=== PATIENT | female | born 1960 | race Hispanic/Latino ===

== ENCOUNTER 2020-10-28 16:26 | Inpatient (IN) | payer MEDICARE ==
[2020-10-28] MEDS ORDERED: methylPREDNISolone Sod Succinate 125 MG/2 ML INJ IV ONE (16:27)
[2020-10-28] MEDS ORDERED: FUROSEMIDE 40 MG/4 ML INJ IV ONE (16:27)
--- NOTE | 2020-10-28 16:33 | Emergency Department Report ---
ED Shortness of Breath HPI - General Chief Complaint: Dyspnea/Respdistress Stated Complaint: RESP DISTRESS Time Seen by Provider: 10/28/20 16:27 Source: patient, EMS - History of Present Illness Initial Comments: Patient is 60 years old female with history of congestive heart failure, COPD and hypertension. Patient brought to the emergency room via EMS from home for evaluation of sudden onset of difficulty breathing and shortness of breath. Patient denied any chest pain. Patient also denied any fever or chills. Patient is not vaccinated for COVID-19. EMS is reported that patient oxygen saturation initially was 72 improved to 82% on a nonrebreather. Upon arrival to the ER patient is tachypneic with an oxygen saturation of 72% on nonrebreather. Patient is alert, oriented x3 in acute distress. Patient immediately started on BiPAP. Chest exam showed diffuse rales. Patient given Lasix 60 mg IV. MD Complaint: shortness of breath - Related Data Allergies Allergy/AdvReac Type Severity Reaction Status Date / Time acetaminophen Allergy Swelling Verified 11/20/12 00:47 [From Tylenol-Codeine #3] codeine phosphate Allergy Swelling Verified 11/20/12 00:47 [From Tylenol-Codeine #3] Penicillins Allergy Unknown Verified 11/20/12 00:47 ED Review of Systems ROS: Stated complaint: RESP DISTRESS Other details as noted in HPI Comment: All other systems reviewed and negative Constitutional: denies: chills, fever Respiratory: cough, orthopnea, shortness of breath, SOB with exertion, SOB at rest. denies: wheezing Cardiovascular: denies: chest pain, palpitations Gastrointestinal: denies: abdominal pain, nausea, vomiting Musculoskeletal: denies: back pain Neurological: denies: headache, weakness, numbness, paresthesias, confusion, abnormal gait ED Past Medical Hx - Past Medical History Hx Hypertension: Yes Hx Arthritis: Yes Additional medical history: Anxiety, Panic Attack - Surgical History Additional Surgical History: Bilateral shoulder, leg and knee surgery - Social History Smoking Status: Current Every Day Smoker Substance Use Type: None ED Physical Exam - General General appearance: alert, in distress - Head Head exam: Present: atraumatic, normocephalic, normal inspection - Eye Eye exam: Present: normal appearance, PERRL - ENT ENT exam: Present: normal exam, normal orophraynx, mucous membranes moist - Neck Neck exam: Present: normal inspection, full ROM. Absent: tenderness, meningismus - Respiratory Respiratory exam: Present: respiratory distress, rales, decreased breath sounds. Absent: wheezes, rhonchi, chest wall tenderness, accessory muscle use, prolonged expiratory - Cardiovascular Cardiovascular Exam: Present: tachycardia, normal heart sounds. Absent: systolic murmur, diastolic murmur - GI/Abdominal GI/Abdominal exam: Present: soft, normal bowel sounds. Absent: distended, tenderness, guarding, rebound, rigid, organomegaly, mass, bruit, pulsatile mass, hernia - Extremities Exam Extremities exam: Present: normal inspection, full ROM, normal capillary refill. Absent: tenderness, pedal edema, joint swelling, calf tenderness - Back Exam Back exam: Present: normal inspection, full ROM. Absent: CVA tenderness (R), CVA tenderness (L) - Neurological Exam Neurological exam: Present: alert, oriented X3, CN II-XII intact, normal gait, reflexes normal. Absent: motor sensory deficit - Psychiatric Psychiatric exam: Present: anxious - Skin Skin exam: Present: warm, intact, normal color ED Course Vital Signs 10/28/20 10/28/20 16:32 16:41 Temperature 98.9 F Pulse Rate 131 H 116 H Respiratory 40 H 30 H Rate Blood Pressure 134/89 132/88 O2 Sat by Pulse 94 92 Oximetry ED Medical Decision Making - Lab Data Result diagrams: 10/28/20 17:30 10/28/20 16:35 - EKG Data -: EKG Interpreted by Wy EKG shows normal: sinus rhythm Rate: tachycardia - EKG Data Interpretation: no acute changes - Radiology Data Radiology results: report reviewed - Medical Decision Making Patient is 60 years old female with history of congestive heart failure, COPD and hypertension. Patient brought to the emergency room via EMS from home for evaluation of sudden onset of difficulty breathing and shortness of breath. Patient denied any chest pain. Patient also denied any fever or chills. Patient is not vaccinated for COVID-19. EMS is reported that patient oxygen saturation initially was 72 improved to 82% on a nonrebreather. Upon arrival to the ER patient is tachypneic with an oxygen saturation of 72% on nonrebreather. Patient is alert, oriented x3 in acute distress. Patient immediately started on BiPAP. Chest exam showed diffuse rales. Patient given Lasix 60 mg IV. Patient symptoms improved significantly with BiPAP. O2 sat now is 96%. Patient lactic acid is 7.2. Patient started on gentle hydration normal saline 250 mL/h. Chest x-ray showed bilateral pneumonia concerning for COVID-19. Patient already received Solu-Medrol. I added Levaquin since patient is allergic to penicillin. I discussed the patient with Dr. Negro, he agreed to admit the patient to medical service for further management. Critical Care Time: Yes Critical care time in (mins) excluding proc time.: 30 Critical care attestation.: If time is entered above; I have spent that time in minutes in the direct care of this critically ill patient, excluding procedure time. ED Disposition Clinical Impression: Acute respiratory failure with hypoxia, Bilateral pneumonia, Suspected COVID-19 virus infection Disposition: ADMITTED INPATIENT Is pt being admited?: Yes Condition: Stable Instructions: Bacterial Pneumonia (ED)
[2020-10-28] MEDS ORDERED: MORPHINE 4 MG/1 ML INJ IV ONE (17:05)
[2020-10-28] MEDS ORDERED: ONDANSETRON 4 MG/2 ML INJ IV ONE (17:05)
--- NOTE | 2020-10-28 17:06 | XRay Report ---
CHEST 1 VIEW INDICATION: Dyspnea. COMPARISON: None FINDINGS: SUPPORT DEVICES: None. HEART: Cardiomegaly with CABG change. LUNGS/PLEURA: Moderate patchy multifocal airspace disease with a right greater than left basilar pred ominance. ADDITIONAL FINDINGS: None. IMPRESSION: 1. Lung findings as above Signer Name: Adam Bravo MD Signed: 10/28/2020 5:01 PM Workstation Name: [id number]
[2020-10-28] MEDS ORDERED: SODIUM CHLORIDE 0.9% 1000 ML 1,000 ML IV ONE (17:22)
[2020-10-28 17:24] LABS: BUN/Creatinine Ratio 14; Blood Urea Nitrogen 13 mg/dL (7-17); Calcium 9.5 mg/dL (8.4-10.2); Hemolysis Index 49
[2020-10-28 17:27] LABS: INR 0.99 (0.87-1.13)
[2020-10-28 17:28] LABS: Albumin 4.2 g/dL (3.9-5); Bilirubin,Direct 0.2 mg/dL (0-0.2)
[2020-10-28 17:40] LABS: Chol/HDL Ratio 4.35 %; HDL Cholesterol 39 mg/dL (40-59); LDL Cholesterol,Direct 100 mg/dL (50-130)
[2020-10-28 17:52] LABS: Partial Thromboplastin Time < 24.2 Sec. (24.2-36.6)
[2020-10-28 17:57] LABS: Hemoglobin 9.9 gm/dl (10.1-14.3); Mean Corpuscular HGB Conc 31 % (30-34); Mean Corpuscular Volume 89 fl (79-97); Platelet Count 353 K/mm3 (140-440); Red Blood Count 3.59 M/mm3 (3.65-5.03)
[2020-10-28 17:58] LABS: Red Cell Distribution Width 20.5 % (13.2-15.2)
--- NOTE | 2020-10-28 18:10 | History and Physical Report ---
History of Present Illness Chief complaint: Difficulty breathing History of present illness: 60 YO Female with Obesity Hypoventilation Syndrome, CHF, HTN, COPD, OA, ANGELICA, Nicotine Dependence presents to ED for evaluation. Patient reports "it is difficult to breathe". Patient states that she experienced generalized we akness, malaise, body aches, diminished sense of taste, diminished sense of smell, shortness of breath over the past 2 days with acute worsening of shortness of breath today. EMS was notified and upon arrival the patient was found to be in distress and subsequent transported to [facility] for further care and evaluation of the aforementioned symptoms. The patient was seen and evaluated in the emergency department. All lab and imaging studies reviewed. The patient was found to have a pulse oximetry of 72% on room air which is consistent with acute hypoxemic respiratory failure. The patient was treated with supplemental oxygen with mild improvement in symptoms. Chest x-ray revealed bilateral pn eumonia. The patient was found to have sepsis suspected secondary to pneumonia, as well as metabolic acidosis. The patient was admitted to medical floor and initiated on sepsis protocol as well as pneumonia protocol and coronavirus protocol due to increased risk of worsening symptoms. Patient denies fever, chills, chest pain, palpitation, skin rash, recent ill contacts. Patient has not received COVID-19 vaccination. Past History Past Medical History: arthritis, COPD, heart failure, hypertension Past Surgical History: total knee replacement, Other (Shoulder surgery) Social history: , smoking Family history: diabetes, hypertension Medications and Allergies Allergies Allergy/AdvReac Type Severity Reaction Status Date / Time acetaminophen Allergy Swelling Verified 11/20/12 00:47 [From Tylenol-Codeine #3] codeine phosphate Allergy Swelling Verified 11/20/12 00:47 [From Tylenol-Codeine #3] Penicillins Allergy Unknown Verified 11/20/12 00:47 Active Meds: Active Medications Levofloxacin/Dextrose (Levaquin 500mg/100ml) 500 mg in 100 mls @ 100 mls/hr IV ONCE ONE; Protocol Stop: 10/28/20 18:20 Last Admin: 10/28/20 17:45 Dose: 100 mls/hr Documented by: Sodium Chloride (Nacl 0.9% 1000 Ml) 1,000 mls @ 250 mls/hr IV ONCE ONE Stop: 10/28/20 21:21 Last Admin: 10/28/20 17:45 Dose: 250 mls/hr Documented by: Review of Systems Constitutional: fatigue, weakness, malaise, no weight loss, no weight gain, no fever Ears, nose, mouth and throat: other (Diminished sense of smell, diminished sense of taste), no ear pain, no ear discharge, no decreased hearing, no nose pain, no nasal congestion Cardiovascular: no chest pain, no orthopnea, no palpitations Respiratory: no cough, no excessive sputum, no hemoptysis Gastrointestinal: no nausea, no vomiting, no diarrhea, no constipation Genitourinary Female: no pelvic pain, no flank pain, no dysuria, no urinary frequency, no urgency Rectal: no pain, no incontinence, no bleeding Musculoskeletal: no neck stiffness, no neck pain, no shooting arm pain, no arm numbness/tingling, no low back pain Integumentary: no rash, no pruritis, no redness, no wounds, no boils Neurological: no head injury, no transient paralysis, no weakness, no numbness, no tingling, no syncope Psychiatric: no anxiety, no change in sleep habits, no insomnia, no change in libido, no suicidal ideation Endocrine: no cold intolerance, no heat intolerance, no polydipsia, no nocturia, no excessive sweating Hematologic/Lymphatic: no easy bruising, no easy bleeding Allergic/Immunologic: no allergic rhinitis Exam - Constitutional Vitals: Temp Pulse Resp BP Pulse Ox 98.9 F 116 H 30 H 132/88 92 10/28/20 16:41 10/28/20 16:41 10/28/20 16:41 10/28/20 16:41 10/28/20 16:41 General appearance: Present: mild distress, obese - EENT Eyes: Present: PERRL ENT: hearing intact, clear oral mucosa - Neck Neck: Present: supple, normal ROM - Respiratory Respiratory effort: labored, accessory muscle use, stridor Respiratory: bilateral: diminished, rhonchi - Cardiovascular Heart Sounds: Present: S1 & S2. Absent: rub, click - Extremities Extremities: pulses symmetrical, No edema Peripheral Pulses: abnormal (Capillary refill greater than 3.5 seconds) - Abdominal General gastrointestinal: Present: soft, non-tender, non-distended, normal bowel sounds Female genitourinary: Present: normal - Integumentary Integumentary: Present: clear, warm, dry - Musculoskeletal Musculoskeletal: generalized weakness - Psychiatric Psychiatric: appropriate mood/affect, intact judgment & insight - Neurologic Neurologic: CNII-XII intact, moves all extremities HEART Score - HEART Score Troponin: Troponin T 0.041 ng/mL (0.00-0.029) H 10/28/20 16:35 Results - Labs CBC & Chem 7: 10/28/20 17:30 10/28/20 16:35 Labs: Abnormal lab results 10/28/20 10/28/20 10/28/20 Range/Units 16:35 16:35 16:35 WBC (4.5-11.0) K/mm3 RBC (3.65-5.03) M/mm3 Hgb (10.1-14.3) gm/dl RDW (13.2-15.2) % APTT < 24.2 L (24.2-36.6) Sec. Carbon Dioxide 14 L (22-30) mmol/L Glucose 300 H (65-100) mg/dL Lactic Acid 7.90 H* (0.7-2.0) mmol/L Troponin T 0.041 H (0.00-0.029) ng/mL NT-Pro-B Natriuret Pep (0-900) pg/mL Triglycerides 205 H (2-149) mg/dL HDL Cholesterol 39 L (40-59) mg/dL 10/28/20 10/28/20 Range/Units 16:35 17:30 WBC 14.9 H (4.5-11.0) K/mm3 RBC 3.59 L (3.65-5.03) M/mm3 Hgb 9.9 L (10.1-14.3) gm/dl RDW 20.5 H (13.2-15.2) % APTT (24.2-36.6) Sec. Carbon Dioxide (22-30) mmol/L Glucose (65-100) mg/dL Lactic Acid (0.7-2.0) mmol/L Troponin T (0.00-0.029) ng/mL NT-Pro-B Natriuret Pep 5242 H (0-900) pg/mL Triglycerides (2-149) mg/dL HDL Cholesterol (40-59) mg/dL Assessment and Plan - Patient Problems (1) Sepsis Current Visit: Yes Status: Acute Plan to address problem: Sepsis protocol: Chest x-ray, CBC, CMP, urinalysis, monitor urine output every shift, maintain mean arterial pressure greater than or equal to 65, blood culture, serial lactic acid level (2) Obesity hypoventilation syndrome Current Visit: Yes Status: Acute Plan to address problem: Balanced diet, increase physical activity at discharge, outpatient pulmonary follow-up for sleep study, (3) Acidosis Current Visit: Yes Status: Acute Plan to address problem: Serial lactic acid level, IV fluid resuscitation therapy, (4) Acute respiratory failure with hypoxia Current Visit: Yes Status: Acute Plan to address problem: Supplemental oxygen, pulse oximetry, nebulizer therapy, CTA of the chest to evaluate for pulmonary embolism ordered and is pending at time of admission. (5) Bilateral pneumonia Current Visit: Yes Status: Acute Plan to address problem: Pneumonia protocol: Chest x-ray, CBC, CMP, supplemental oxygen, pulse oximetry, nebulizer therapy, IV antibiotic therapy, (6) Suspected COVID-19 virus infection Current Visit: Yes Status: Acute Plan to address problem: Coronavirus protocol: IV antibiotic therapy, IV steroid therapy, supplemental oxygen, pulse oximetry, vitamin C therapy, vitamin D therapy, zinc therapy, prophylactic anticoagulation. (7) Hypertension Current Visit: Yes Status: Acute Qualifiers: Hypertension type: primary hypertension Qualified Code(s): I10 - Essential (primary) hypertension Plan to address problem: Monitor blood pressure every shift, continue medical management. (8) Osteoarthritis Current Visit: Yes Status: Acute Plan to address problem: Pain control, supportive care. (9) Nicotine dependence Current Visit: Yes Status: Acute Qualifiers: Nicotine product type: cigarettes Substance use status: in withdrawal Qualified Code(s): F17.213 - Nicotine dependence, cigarettes, with withdrawal Plan to address problem: Supportive care, smoking cessation counseling, behavior change counseling, +15 minutes. (10) DVT prophylaxis Current Visit: Yes Status: Acute Plan to address problem: SCD to bilateral lower extremities while in bed, prophylactic anticoagulation (11) Advance care planning Current Visit: Yes Status: Acute Plan to address problem: Disease education conducted, care plan discussed, diagnoses discussed, prognosis discussed, patient is full code, patient acknowledges understanding agree with care plan, +30 minutes.
[2020-10-28] MEDS ORDERED: ONDANSETRON 4 MG/2 ML INJ IV PRN (18:11)
[2020-10-28] MEDS ORDERED: ACETAMINOPHEN 325 MG TAB PO PRN ×2 (18:11)
[2020-10-28] MEDS ORDERED: ALBUTEROL 2.5 MG/3 ML NEBU IH PRN (18:11)
[2020-10-28] MEDS ORDERED: SODIUM CHLORIDE 0.9% 1000 ML IV SOLN IV ONE (18:30)
[2020-10-28 18:59] LABS: Total Cells Counted 100
[2020-10-28 19:00] LABS: Platelet Estimate Consistent w Auto; Tear Drop Cells Few
[2020-10-28] MEDS: HYDROmorphone 1 MG/1 ML INJ IV PRN ×2 (20:05→22:42)
[2020-10-28] MEDS: ZINC SULFATE 220 MG CAP PO SCH (22:17)
[2020-10-28] MEDS: AZITHROMYCIN/NS 500 MG/250 ML 500 MG/250 ML BAG IV SCH (22:17)
[2020-10-28] MEDS: HEPARIN 5,000 UNIT/1 ML VIAL SUB-Q SCH (22:17)
[2020-10-28] MEDS: ASCORBIC ACID 500 MG TAB PO SCH (22:17)
[2020-10-28] MEDS: FAMOTIDINE 10 MG TAB PO SCH (22:18)
[2020-10-29] MEDS: methylPREDNISolone Sod Succinate 40 MG/1 ML INJ IV SCH ×2 (00:22→10:38)
[2020-10-29] MEDS: oxyCODONE /ACETAMINOPHEN 5-325MG TAB PO PRN ×3 (01:30→19:02)
[2020-10-29 06:00] LABS: Hematocrit 28.7 % (30.3-42.9); Hemoglobin 9.2 gm/dl (10.1-14.3); Mean Corpuscular HGB Conc 32 % (30-34); Mean Corpuscular Volume 85 fl (79-97); Platelet Count 312 K/mm3 (140-440); Red Blood Count 3.36 M/mm3 (3.65-5.03)
[2020-10-29 06:12] LABS: BUN/Creatinine Ratio 16; Blood Urea Nitrogen 13 mg/dL (7-17); Hemolysis Index 0
[2020-10-29] MEDS ORDERED: hydrALAZINE 20 MG/1 ML INJ IV ONE (06:58)
[2020-10-29] MEDS: HYDROmorphone 1 MG/1 ML INJ IV PRN ×4 (06:59→22:10)
--- NOTE | 2020-10-29 07:16 | Progress Note ---
Hospitalist Physical - Constitutional Vitals: Temp Pulse Resp BP Pulse Ox 98.7 F 111 H 20 172/109 99 10/29/20 05:47 10/29/20 05:47 10/29/20 05:47 10/29/20 05:47 10/29/20 05:47 General appearance: Present: mild distress, obese HEART Score - HEART Score Troponin: Troponin T 0.056 ng/mL (0.00-0.029) H D 10/28/20 18:34 Results - Labs CBC & Chem 7: 10/29/20 05:36 10/29/20 05:36 Labs: Laboratory Last Values WBC 7.7 K/mm3 (4.5-11.0) 10/29/20 05:36 RBC 3.36 M/mm3 (3.65-5.03) L 10/29/20 05:36 Hgb 9.2 gm/dl (10.1-14.3) L 10/29/20 05:36 Hct 28.7 % (30.3-42.9) L 10/29/20 05:36 MCV 85 fl (79-97) 10/29/20 05:36 MCH 27 pg (28-32) L 10/29/20 05:36 MCHC 32 % (30-34) 10/29/20 05:36 RDW 20.0 % (13.2-15.2) H 10/29/20 05:36 Plt Count 312 K/mm3 (140-440) 10/29/20 05:36 Lymph % (Auto) Counseling Aide 10/28/20 17:30 [place] % (Auto) Counseling Aide 10/28/20 17:30 Eos % (Auto) Counseling Aide 10/28/20 17:30 Baso % (Auto) Counseling Aide 10/28/20 17:30 Lymph # (Auto) Counseling Aide 10/28/20 17:30 [place] # (Auto) Counseling Aide 10/28/20 17:30 Eos # (Auto) Counseling Aide 10/28/20 17:30 Baso # (Auto) Counseling Aide 10/28/20 17:30 Add Manual Diff Complete 10/28/20 17:30 Total Counted 100 10/28/20 17:30 Seg Neutrophils % Counseling Aide 10/28/20 17:30 Seg Neuts % (Manual) 95.0 % (40.0-70.0) H 10/28/20 17:30 Lymphocytes % (Manual) 4.0 % (13.4-35.0) L 10/28/20 17:30 Basophils % (Manual) 1.0 % (0.0-1.8) 10/28/20 17:30 Nucleated RBC % Not Reportable 10/28/20 17:30 Seg Neutrophils # Counseling Aide 10/28/20 17:30 Seg Neutrophils # Man 14.2 K/mm3 (1.8-7.7) H 10/28/20 17:30 Band Neutrophils # 0.0 K/mm3 10/28/20 17:30 Lymphocytes # (Manual) 0.6 K/mm3 (1.2-5.4) L 10/28/20 17:30 Abs React Lymphs (Man) 0.0 K/mm3 10/28/20 17:30 Monocytes # (Manual) 0.0 K/mm3 (0.0-0.8) 10/28/20 17:30 Eosinophils # (Manual) 0.0 K/mm3 (0.0-0.4) 10/28/20 17:30 Basophils # (Manual) 0.1 K/mm3 (0.0-0.1) 10/28/20 17:30 Metamyelocytes # 0.0 K/mm3 10/28/20 17:30 Myelocytes # 0.0 K/mm3 10/28/20 17:30 Promyelocytes # 0.0 K/mm3 10/28/20 17:30 Blast Cells # 0.0 K/mm3 10/28/20 17:30 WBC Morphology Not Reportable 10/28/20 17:30 WBC Morphology TNR 10/28/20 17:30 Hypersegmented Neuts Not Reportable 10/28/20 17:30 Hyposegmented Neuts Not Reportable 10/28/20 17:30 Hypogranular Neuts Not Reportable 10/28/20 17:30 Smudge Cells Not Reportable 10/28/20 17:30 Toxic Granulation Not Reportable 10/28/20 17:30 Toxic Vacuolation Not Reportable 10/28/20 17:30 Dohle Bodies Not Reportable 10/28/20 17:30 Pelger-Huet Anomaly Not Reportable 10/28/20 17:30 No Rods Not Reportable 10/28/20 17:30 Platelet Estimate Consistent w auto 10/28/20 17:30 Clumped Platelets Not Reportable 10/28/20 17:30 Plt Clumps, EDTA Not Reportable 10/28/20 17:30 Large Platelets Not Reportable 10/28/20 17:30 Giant Platelets Not Reportable 10/28/20 17:30 Platelet Satelliting Not Reportable 10/28/20 17:30 Plt Morphology Comment Not Reportable 10/28/20 17:30 RBC Morphology Not Reportable 10/28/20 17:30 Dimorphic RBCs Not Reportable 10/28/20 17:30 Polychromasia Not Reportable 10/28/20 17:30 Hypochromasia Not Reportable 10/28/20 17:30 Poikilocytosis Not Reportable 10/28/20 17:30 Anisocytosis Not Reportable 10/28/20 17:30 Microcytosis Not Reportable 10/28/20 17:30 Macrocytosis Not Reportable 10/28/20 17:30 Spherocytes Not Reportable 10/28/20 17:30 Pappenheimer Bodies Not Reportable 10/28/20 17:30 Sickle Cells Not Reportable 10/28/20 17:30 Target Cells Not Reportable 10/28/20 17:30 Tear Drop Cells Few 10/28/20 17:30 Ovalocytes Not Reportable 10/28/20 17:30 Helmet Cells Not Reportable 10/28/20 17:30 [place] Bodies Not Reportable 10/28/20 17:30 Clear Rings Not Reportable 10/28/20 17:30 Joanie Cells Not Reportable 10/28/20 17:30 Bite Cells Not Reportable 10/28/20 17:30 Crenated Cell Not Reportable 10/28/20 17:30 Elliptocytes Few 10/28/20 17:30 Acanthocytes (Spur) Not Reportable 10/28/20 17:30 Rouleaux Not Reportable 10/28/20 17:30 Hemoglobin C Crystals Not Reportable 10/28/20 17:30 Schistocytes Not Reportable 10/28/20 17:30 Malaria parasites Not Reportable 10/28/20 17:30 Benji Bodies Not Reportable 10/28/20 17:30 Hem Pathologist Commnt No 10/28/20 17:30 PT 13.6 Sec. (12.2-14.9) 10/28/20 16:35 INR 0.99 (0.87-1.13) 10/28/20 16:35 APTT < 24.2 Sec. (24.2-36.6) L 10/28/20 16:35 Sodium 135 mmol/L (137-145) L 10/29/20 05:36 Potassium 4.2 mmol/L (3.6-5.0) 10/29/20 05:36 Chloride 98.9 mmol/L (98-107) 10/29/20 05:36 Carbon Dioxide 30 mmol/L (22-30) D 10/29/20 05:36 Anion Gap 10 mmol/L 10/29/20 05:36 BUN 13 mg/dL (7-17) 10/29/20 05:36 Creatinine 0.8 mg/dL (0.6-1.2) 10/29/20 05:36 Estimated GFR > 60 ml/min 10/29/20 05:36 BUN/Creatinine Ratio 16 % 10/29/20 05:36 Glucose 203 mg/dL (65-100) H 10/29/20 05:36 POC Glucose 175 mg/dL (70-105) H 10/29/20 00:16 Lactic Acid 0.80 mmol/L (0.7-2.0) 10/29/20 05:36 Calcium 8.0 mg/dL (8.4-10.2) L D 10/29/20 05:36 Total Bilirubin 0.50 mg/dL (0.1-1.2) 10/28/20 16:35 Direct Bilirubin 0.2 mg/dL (0-0.2) 10/28/20 16:35 Indirect Bilirubin 0.3 mg/dL 10/28/20 16:35 AST 25 units/L (5-40) 10/28/20 16:35 ALT 24 units/L (7-56) 10/28/20 16:35 Alkaline Phosphatase 93 units/L (35-129) 10/28/20 16:35 Troponin T 0.056 ng/mL (0.00-0.029) H D 10/28/20 18:34 NT-Pro-B Natriuret Pep 5242 pg/mL (0-900) H 10/28/20 16:35 Total Protein 8.1 g/dL (6.3-8.2) 10/28/20 16:35 Albumin 4.2 g/dL (3.9-5) 10/28/20 16:35 Albumin/Globulin Ratio 1.1 % 10/28/20 16:35 Triglycerides 205 mg/dL (2-149) H 10/28/20 16:35 Cholesterol 170 mg/dL (50-199) 10/28/20 16:35 LDL Cholesterol Direct 100 mg/dL (50-130) 10/28/20 16:35 HDL Cholesterol 39 mg/dL (40-59) L 10/28/20 16:35 Cholesterol/HDL Ratio 4.35 % 10/28/20 16:35 Blood Type A NEGATIVE 10/28/20 18:34 Antibody Screen Negative 10/28/20 18:34 Microbiology: Microbiology 10/28/20 16:51 Peripheral/Venous Blood Culture - Preliminary Culture in Progress 10/28/20 16:51 Peripheral/Venous Blood Culture - Preliminary Culture in Progress Hernandez/IV: Voiding Method External Female Catheter Active Medications - Current Medications Current Medications: Generic Name Dose Route Start Last Admin Trade Name Freq PRN Reason Stop Dose Admin Acetaminophen 650 mg 10/28/20 18:11 Acetaminophen 325 Mg Tab PO Q4H PRN Pain MILD(1-3)/Fever >100.5/VICTOR Albuterol 2.5 mg 10/28/20 18:11 Albuterol 2.5 Mg/3 Ml Nebu IH Q4HRT PRN Shortness Of Breath Ascorbic Acid 500 mg 10/28/20 22:00 10/28/20 22:17 Ascorbic Acid 500 Mg Tab PO 500 mg BID BRIANNE Administration Cholecalciferol 1,000 unit 10/29/20 10:00 Cholecalciferol (Vit D3) 1000 Unit (25 Mcg) Tab PO QDAY BRIANNE Famotidine 10 mg 10/28/20 22:00 10/28/20 22:18 Famotidine 10 Mg Tab PO 10 mg BID BRIANNE Administration Heparin Sodium (Porcine) 5,000 unit 10/28/20 22:00 10/28/20 22:17 Heparin 5,000 Unit/1 Ml Vial SUB-Q 5,000 unit Q12HR BRIANNE Administration Hydromorphone HCl 0.25 mg 10/28/20 18:11 10/29/20 06:59 Hydromorphone 1 Mg/1 Ml Inj IV 0.25 mg Q4H PRN Administration Pain, Moderate (4-6) Hydromorphone HCl 0.5 mg 10/28/20 18:11 10/28/20 22:42 Hydromorphone 1 Mg/1 Ml Inj IV 0.5 mg Q24H PRN Administration Pain , Severe (7-10) Azithromycin 500 mg in 250 mls @ 250 mls/hr 10/28/20 20:00 10/28/20 22:17 Zithromax/Ns IV 250 mls/hr Q24H BRIANNE Administration Protocol Methylprednisolone Sodium Succinate 40 mg 10/29/20 00:00 10/29/20 00:22 Methylprednisolone Sod Succinate 40 Mg/1 Ml Inj IV 40 mg Q8H BRIANNE Administration Ondansetron HCl 4 mg 10/28/20 18:11 Ondansetron 4 Mg/2 Ml Inj IV Q8H PRN Nausea And Vomiting Oxycodone/Acetaminophen 1 tab 10/28/20 18:11 10/29/20 01:30 Oxycodone /Acetaminophen 5-325mg Tab PO 1 tab Q12H PRN Administration Pain, Moderate (4-6) Sodium Chloride 10 ml 10/28/20 22:00 10/28/20 22:42 Sodium Chloride 0.9% 10 Ml Flush Syringe IV 10 ml BID BRIANNE Administration Sodium Chloride 10 ml 10/28/20 18:11 Sodium Chloride 0.9% 10 Ml Flush Syringe IV PRN PRN LINE FLUSH Zinc Sulfate 220 mg 10/28/20 22:00 10/28/20 22:17 Zinc Sulfate 220 Mg Cap PO 220 mg BID BRIANNE Administration
[2020-10-29] MEDS ORDERED: CHOLECALCIFEROL (VIT D3) 1000 UNIT (25 mcg) TAB PO SCH (10:00)
[2020-10-29] MEDS: ZINC SULFATE 220 MG CAP PO SCH (10:38)
[2020-10-29] MEDS: ASCORBIC ACID 500 MG TAB PO SCH (10:38)
[2020-10-29] MEDS: FAMOTIDINE 10 MG TAB PO SCH ×2 (10:38→22:04)
[2020-10-29] MEDS: HEPARIN 5,000 UNIT/1 ML VIAL SUB-Q SCH ×2 (10:39→22:06)
--- NOTE | 2020-10-29 13:14 | Electrocardiograph Report ---
[facility] Test Date: 2020-10-28 Test Time: 17:00:31 Pat Name: AYDEE PERRIN Department: Room: A362 1 Gender: F Associate Research Scientist: BALWINDER : 1960 Requested By: RIAN HOU Order Number: [id number] Reading MD: Omari Mcgraw Measurements Intervals [place] Rate: 105 P: 44 IN: 152 QRS: 66 QRSD: 92 T: 86 QT: 347 QTc: 459 Interpretive Statements Sinus tachycardia Anterior infarct, old No previous ECG available for comparison Electronically Signed On 10-29-2020 13:14:07 EDT by Omari Mcgraw
--- NOTE | 2020-10-29 13:31 | Progress Note ---
Assessment and Plan Assessment and plan: #Sepsis -Blood cultures collected -Patient reports being hospitalized with pneumonia and lung abscess in September (will request records from [place]) -Was taking cefdinir 300 mg twice a day -We will continue with azithromycin and Rocephin for now -Awaiting imaging results #Acute on chronic hypoxic respiratory failure -Chest x-ray with bilateral pneumonia -Patient reports using 3 L of oxygen at home following hospital discharge in September -patient denies history of COPD, is a current smoker -Currently on high flow 8 L/min -We will maintain O2 saturation greater than 92% -Covid PCR negative, will discontinue steroids and Covid vitamins -Likely secondary to pneumonia vs CHF exacerbation -Declined CTA with contrast, agreeable to CT without contrast -duoneb q6h x 1 day #Suspected COVID-19 infection -COVID PCR negative #Coronary artery disease -status post CABG x3 with valve repair -Continue Plavix and statin #Hypertension -Restarted home medications #History of heart failure -Euvolemic on exam, BNP 5242 -Currently on GDMT -s/p 1 dose lasix in the ED; will continue with lasix 40q day -TTE ordered #Sciatica -Continue pregabalin -Patient reports using opiate therapy at home -will continue with as needed opiates Disposition Plan: home with Total Time Spent with Patient (Minutes): 30 minutes History Interval history: No acute events overnight. Patient refused CT due to not "feeling like herself" in the past when she was given contrast. She denies chest pain and no worsening of shortness of breath. Hospitalist Physical - Physical exam Narrative exam: GENERAL: Obese woman. Sitting in bed in no acute distress. HEENT: NC @ 8LPM CHEST/LUNGS: Coarse breath sounds. HEART/CARDIOVASCULAR: Tachycardic. No murmur, rubs or gallops appreciated. ABDOMEN: +BS. NT/ND. NEURO: No focal motor deficit. Follows all commands. EXTREMITIES: No cyanosis, clubbing or edema. PSYCH: Cooperative. - Constitutional Vitals: Temp Pulse Resp BP Pulse Ox 98.7 F 111 H 20 172/109 99 10/29/20 05:47 10/29/20 05:47 10/29/20 05:47 10/29/20 05:47 10/29/20 09:41 General appearance: Present: mild distress, obese HEART Score - HEART Score Troponin: Troponin T 0.056 ng/mL (0.00-0.029) H D 10/28/20 18:34 Results - Labs CBC & Chem 7: 10/29/20 05:36 10/29/20 05:36 Labs: Laboratory Last Values WBC 7.7 K/mm3 (4.5-11.0) 10/29/20 05:36 RBC 3.36 M/mm3 (3.65-5.03) L 10/29/20 05:36 Hgb 9.2 gm/dl (10.1-14.3) L 10/29/20 05:36 Hct 28.7 % (30.3-42.9) L 10/29/20 05:36 MCV 85 fl (79-97) 10/29/20 05:36 MCH 27 pg (28-32) L 10/29/20 05:36 MCHC 32 % (30-34) 10/29/20 05:36 RDW 20.0 % (13.2-15.2) H 10/29/20 05:36 Plt Count 312 K/mm3 (140-440) 10/29/20 05:36 Lymph % (Auto) [employer] 10/28/20 17:30 [place] % (Auto) [employer] 10/28/20 17:30 Eos % (Auto) [employer] 10/28/20 17:30 Baso % (Auto) [employer] 10/28/20 17:30 Lymph # (Auto) [employer] 10/28/20 17:30 [place] # (Auto) [employer] 10/28/20 17:30 Eos # (Auto) [employer] 10/28/20 17:30 Baso # (Auto) [employer] 10/28/20 17:30 Add Manual Diff Complete 10/28/20 17:30 Total Counted 100 10/28/20 17:30 Seg Neutrophils % [employer] 10/28/20 17:30 Seg Neuts % (Manual) 95.0 % (40.0-70.0) H 10/28/20 17:30 Lymphocytes % (Manual) 4.0 % (13.4-35.0) L 10/28/20 17:30 Basophils % (Manual) 1.0 % (0.0-1.8) 10/28/20 17:30 Nucleated RBC % Not Reportable 10/28/20 17:30 Seg Neutrophils # [employer] 10/28/20 17:30 Seg Neutrophils # Man 14.2 K/mm3 (1.8-7.7) H 10/28/20 17:30 Band Neutrophils # 0.0 K/mm3 10/28/20 17:30 Lymphocytes # (Manual) 0.6 K/mm3 (1.2-5.4) L 10/28/20 17:30 Abs React Lymphs (Man) 0.0 K/mm3 10/28/20 17:30 Monocytes # (Manual) 0.0 K/mm3 (0.0-0.8) 10/28/20 17:30 Eosinophils # (Manual) 0.0 K/mm3 (0.0-0.4) 10/28/20 17:30 Basophils # (Manual) 0.1 K/mm3 (0.0-0.1) 10/28/20 17:30 Metamyelocytes # 0.0 K/mm3 10/28/20 17:30 Myelocytes # 0.0 K/mm3 10/28/20 17:30 Promyelocytes # 0.0 K/mm3 10/28/20 17:30 Blast Cells # 0.0 K/mm3 10/28/20 17:30 WBC Morphology Not Reportable 10/28/20 17:30 WBC Morphology TNR 10/28/20 17:30 Hypersegmented Neuts Not Reportable 10/28/20 17:30 Hyposegmented Neuts Not Reportable 10/28/20 17:30 Hypogranular Neuts Not Reportable 10/28/20 17:30 Smudge Cells Not Reportable 10/28/20 17:30 Toxic Granulation Not Reportable 10/28/20 17:30 Toxic Vacuolation Not Reportable 10/28/20 17:30 Dohle Bodies Not Reportable 10/28/20 17:30 Pelger-Huet Anomaly Not Reportable 10/28/20 17:30 No Rods Not Reportable 10/28/20 17:30 Platelet Estimate Consistent w auto 10/28/20 17:30 Clumped Platelets Not Reportable 10/28/20 17:30 Plt Clumps, EDTA Not Reportable 10/28/20 17:30 Large Platelets Not Reportable 10/28/20 17:30 Giant Platelets Not Reportable 10/28/20 17:30 Platelet Satelliting Not Reportable 10/28/20 17:30 Plt Morphology Comment Not Reportable 10/28/20 17:30 RBC Morphology Not Reportable 10/28/20 17:30 Dimorphic RBCs Not Reportable 10/28/20 17:30 Polychromasia Not Reportable 10/28/20 17:30 Hypochromasia Not Reportable 10/28/20 17:30 Poikilocytosis Not Reportable 10/28/20 17:30 Anisocytosis Not Reportable 10/28/20 17:30 Microcytosis Not Reportable 10/28/20 17:30 Macrocytosis Not Reportable 10/28/20 17:30 Spherocytes Not Reportable 10/28/20 17:30 Pappenheimer Bodies Not Reportable 10/28/20 17:30 Sickle Cells Not Reportable 10/28/20 17:30 Target Cells Not Reportable 10/28/20 17:30 Tear Drop Cells Few 10/28/20 17:30 Ovalocytes Not Reportable 10/28/20 17:30 Helmet Cells Not Reportable 10/28/20 17:30 [place] Bodies Not Reportable 10/28/20 17:30 Burns Rings Not Reportable 10/28/20 17:30 [place] Cells Not Reportable 10/28/20 17:30 Bite Cells Not Reportable 10/28/20 17:30 Crenated Cell Not Reportable 10/28/20 17:30 Elliptocytes Few 10/28/20 17:30 Acanthocytes (Spur) Not Reportable 10/28/20 17:30 Rouleaux Not Reportable 10/28/20 17:30 Hemoglobin C Crystals Not Reportable 10/28/20 17:30 Schistocytes Not Reportable 10/28/20 17:30 Malaria parasites Not Reportable 10/28/20 17:30 Benji Bodies Not Reportable 10/28/20 17:30 Hem Pathologist Commnt No 10/28/20 17:30 PT 13.6 Sec. (12.2-14.9) 10/28/20 16:35 INR 0.99 (0.87-1.13) 10/28/20 16:35 APTT < 24.2 Sec. (24.2-36.6) L 10/28/20 16:35 Sodium 135 mmol/L (137-145) L 10/29/20 05:36 Potassium 4.2 mmol/L (3.6-5.0) 10/29/20 05:36 Chloride 98.9 mmol/L (98-107) 10/29/20 05:36 Carbon Dioxide 30 mmol/L (22-30) D 10/29/20 05:36 Anion Gap 10 mmol/L 10/29/20 05:36 BUN 13 mg/dL (7-17) 10/29/20 05:36 Creatinine 0.8 mg/dL (0.6-1.2) 10/29/20 05:36 Estimated GFR > 60 ml/min 10/29/20 05:36 BUN/Creatinine Ratio 16 % 10/29/20 05:36 Glucose 203 mg/dL (65-100) H 10/29/20 05:36 POC Glucose 175 mg/dL (70-105) H 10/29/20 00:16 Lactic Acid 0.80 mmol/L (0.7-2.0) 10/29/20 05:36 Calcium 8.0 mg/dL (8.4-10.2) L D 10/29/20 05:36 Total Bilirubin 0.50 mg/dL (0.1-1.2) 10/28/20 16:35 Direct Bilirubin 0.2 mg/dL (0-0.2) 10/28/20 16:35 Indirect Bilirubin 0.3 mg/dL 10/28/20 16:35 AST 25 units/L (5-40) 10/28/20 16:35 ALT 24 units/L (7-56) 10/28/20 16:35 Alkaline Phosphatase 93 units/L (35-129) 10/28/20 16:35 Troponin T 0.056 ng/mL (0.00-0.029) H D 10/28/20 18:34 NT-Pro-B Natriuret Pep 5242 pg/mL (0-900) H 10/28/20 16:35 Total Protein 8.1 g/dL (6.3-8.2) 10/28/20 16:35 Albumin 4.2 g/dL (3.9-5) 10/28/20 16:35 Albumin/Globulin Ratio 1.1 % 10/28/20 16:35 Triglycerides 205 mg/dL (2-149) H 10/28/20 16:35 Cholesterol 170 mg/dL (50-199) 10/28/20 16:35 LDL Cholesterol Direct 100 mg/dL (50-130) 10/28/20 16:35 HDL Cholesterol 39 mg/dL (40-59) L 10/28/20 16:35 Cholesterol/HDL Ratio 4.35 % 10/28/20 16:35 Coronavirus (PCR) Negative (Negative) 10/29/20 Unknown Blood Type A NEGATIVE 10/28/20 18:34 Antibody Screen Negative 10/28/20 18:34 Microbiology: Microbiology 10/28/20 16:51 Peripheral/Venous Blood Culture - Preliminary Culture in Progress 10/28/20 16:51 Peripheral/Venous Blood Culture - Preliminary Culture in Progress Hernandez/IV: Voiding Method External Female Catheter Active Medications - Current Medications Current Medications: Generic Name Dose Route Start Last Admin Trade Name Freq PRN Reason Stop Dose Admin Acetaminophen 650 mg 10/28/20 18:11 Acetaminophen 325 Mg Tab PO Q4H PRN Pain MILD(1-3)/Fever >100.5/VICTOR Albuterol 2.5 mg 10/28/20 18:11 Albuterol 2.5 Mg/3 Ml Nebu IH Q4HRT PRN Shortness Of Breath Aspirin 81 mg 10/29/20 12:00 Aspirin 81 Mg Tab Chew PO QDAY BRIANNE Clopidogrel Bisulfate 75 mg 10/29/20 12:00 Clopidogrel 75 Mg Tab PO QDAY BRIANNE Famotidine 10 mg 10/28/20 22:00 10/29/20 10:38 Famotidine 10 Mg Tab PO 10 mg BID BRIANNE Administration Heparin Sodium (Porcine) 5,000 unit 10/28/20 22:00 10/29/20 10:39 Heparin 5,000 Unit/1 Ml Vial SUB-Q 5,000 unit Q12HR BRIANNE Administration Hydralazine HCl 50 mg 10/29/20 12:00 Hydralazine 25 Mg Tab PO BID BRIANNE Hydromorphone HCl 0.25 mg 10/28/20 18:11 10/29/20 06:59 Hydromorphone 1 Mg/1 Ml Inj IV 0.25 mg Q4H PRN Administration Pain, Moderate (4-6) Hydromorphone HCl 0.5 mg 10/28/20 18:11 10/28/20 22:42 Hydromorphone 1 Mg/1 Ml Inj IV 0.5 mg Q24H PRN Administration Pain , Severe (7-10) Hydromorphone HCl 1 mg 10/29/20 11:05 Hydromorphone 1 Mg/1 Ml Inj IM Q4H PRN Pain , Severe (7-10) Azithromycin 500 mg in 250 mls @ 250 mls/hr 10/28/20 20:00 10/28/20 22:17 Zithromax/Ns IV 11/01/20 20:59 250 mls/hr Q24H BRIANNE Administration Protocol Losartan Potassium 100 mg 10/29/20 12:00 Losartan 50 Mg Tab PO QDAY BRIANNE Metoprolol Tartrate 50 mg 10/29/20 22:00 Metoprolol Tartrate 50 Mg Tab PO BID BRIANNE Ondansetron HCl 4 mg 10/28/20 18:11 Ondansetron 4 Mg/2 Ml Inj IV Q8H PRN Nausea And Vomiting Oxycodone/Acetaminophen 1 tab 10/28/20 18:11 10/29/20 10:39 Oxycodone /Acetaminophen 5-325mg Tab PO 1 tab Q12H PRN Administration Pain, Moderate (4-6) Pregabalin 200 mg 10/29/20 22:00 Pregabalin 50 Mg Cap PO BID BRIANNE Sodium Chloride 10 ml 10/28/20 22:00 10/29/20 10:39 Sodium Chloride 0.9% 10 Ml Flush Syringe IV 10 ml BID BRIANNE Administration Sodium Chloride 10 ml 10/28/20 18:11 Sodium Chloride 0.9% 10 Ml Flush Syringe IV PRN PRN LINE FLUSH Nutrition/Malnutrition Assess - Dietary Evaluation Nutrition/Malnutrition Findings: Nutrition Notes Start: 10/29/20 09:47 Freq: Status: Active Protocol: Document 10/29/20 09:47 (Rec: 10/29/20 09:56 [id number]) Nutrition Notes Need for Assessment generated from: decorator store,MST Initial or Follow up Assessment Current Diagnosis COPD,Sepsis,Hypertension,Heart Failure,Respiratory Failure Other Pertinent Diagnosis pneu, COVID19 PUI Current Diet cardiac Labs/Tests Na 135 Pertinent Medications Solu Medrol Height 5 ft 5 in Weight 99 kg Usual Body Weight 106.36 kg [place] Body Weight (kg) 56.81 BMI 36.3 Weight change and time frame 6.8% wt loss in 3 weeks Weight Status Obese Subjective/Other Information RN screen for MST. Pt reports eating slightly less recently. She doesn't normally eat breakfast. Pt drinks Boost at home. Burn Absent Trauma Absent Current % PO Fair (50-74%) Minimum of two criteria Yes Energy Intake (non-severe) <75% Estimated Energy Requirement >7 days Interpretation of Weight Loss (severe) >5% in 1 month #1 Nutrition Diagnosis Malnutrition Etiology acute illness As Evidenced by Signs and Symptoms <75% of EET in >7 days, >5% wt loss in 1 month Is patient on ventilator? No Is Patient Ambulatory and/or Out of Bed Yes REE-([place]-St. Jeor-ambulatory/OOB) [ 2028.144 [id number]] Kcal/Kg value to use for calculation 15 Approximate Energy Requirements Using 1485 kcal/Kg Calculation Used for Recommendations Kcal/kg Additional Notes Protein: (1.2-1.5g/kg AdjBW: 78kg) 94-117g Fluid: 1 ml/kcal Nutrition Intervention Change Diet Order: continue Add Supplement/Snack (indicate name/kcal Ensure Enlive BID /protein ) Provides kCal: 700 Provides Protein (gm) 40 Goal #1 Meet at least 75% of protein and kcal needs via PO and ONS Anticipated Discharge Needs: Cardiac Follow-Up By: 11/01/20 Additional Comments F/u: intakes and ONS tolerance
[2020-10-29] MEDS: ASPIRIN 81 MG TAB CHEW PO SCH (13:42)
[2020-10-29] MEDS: CLOPIDOGREL 75 MG TAB PO SCH (13:42)
[2020-10-29] MEDS: LOSARTAN 50 MG TAB PO SCH (13:44)
[2020-10-29] MEDS: hydrALAZINE 25 MG TAB PO SCH ×2 (13:53→22:05)
[2020-10-29 14:25] LABS: Band Neutrophils # (Manual) 0.1 K/mm3; Platelet Estimate Consistent w Auto; RBC Morphology Normal; Total Cells Counted 100
--- NOTE | 2020-10-29 14:32 | Cat Scan Report ---
CT OF THE CHEST WITHOUT CONTRAST INDICATION / CLINICAL INFORMATION: Respiratory failure and history of lung abscess. TECHNIQUE: All CT scans at this location are performed using CT dose reduction for ALARA by means of automated exposure control. COMPARISON: CXR yesterday. FINDINGS: There is moderately severe patchy multifocal groundglass parenchymal disease throughout the right joselo g, all lobes. Disease is most prominent in the right lower lobe. There is mild associated septal thic kening. There are minimal bilateral pleural effusions. There is mild subsegmental atelectasis in the left lower lung. There are multiple small mediastinal lymph nodes which are at the upper limits of no rmal in size and likely reactive. There is severe coronary artery calcification. There is a previous median sternotomy. A mitral valve prosthesis is present. There is mild aortic valvular calcification. There are mild atherosclerotic ca lcifications involving the thoracic aorta without acute abnormality. The gallbladder is surgically absent. The visualized upper abdomen is otherwise unremarkable. There i s mild generalized spondylosis. IMPRESSION: 1. Moderately severe patchy groundglass parenchymal opacities throughout the right lung are nonspecif ic but likely inflammatory. Atypical causes of pneumonia should be considered. 2. Minimal bilateral pleural effusions. Mild left basilar subsegmental atelectasis. Mild mediastinal lymphadenopathy is likely reactive 3. Severe coronary artery calcification.. Signer Name: Negro Wild MD Signed: 10/29/2020 2:28 PM Workstation Name: [id number]
[2020-10-29] MEDS: IPRATROPIUM/ALBUTEROL SULFATE 3 ML AMPUL.NEB IH SCH ×2 (18:11→21:20)
[2020-10-29] MEDS: cefTRIAXone/NS 2 GM/100 ML 2 GM/100 ML BAG IV SCH (19:01)
[2020-10-29] MEDS: AZITHROMYCIN/NS 500 MG/250 ML 500 MG/250 ML BAG IV SCH (20:23)
[2020-10-29] MEDS: PREGABALIN 50 MG CAP PO SCH (22:04)
[2020-10-29] MEDS: METOPROLOL TARTRATE 50 MG TAB PO SCH (22:05)
[2020-10-30] MEDS: HYDROmorphone 1 MG/1 ML INJ IV PRN ×2 (02:05→06:20)
[2020-10-30] MEDS: IPRATROPIUM/ALBUTEROL SULFATE 3 ML AMPUL.NEB IH SCH ×4 (04:56→20:37)
[2020-10-30 07:43] LABS: Hematocrit 26.8 % (30.3-42.9); Hemoglobin 8.7 gm/dl (10.1-14.3); Mean Corpuscular HGB Conc 33 % (30-34); Mean Corpuscular Volume 86 fl (79-97); Platelet Count 267 K/mm3 (140-440); Red Blood Count 3.11 M/mm3 (3.65-5.03)
[2020-10-30 07:59] LABS: Blood Urea Nitrogen 15 mg/dL (7-17); Calcium 8.5 mg/dL (8.4-10.2); Hemolysis Index 1
[2020-10-30 08:20] LABS: BUN/Creatinine Ratio 21
--- NOTE | 2020-10-30 08:50 | Progress Note ---
Assessment and Plan Assessment and plan: #Sepsis -resolved, BCx NGTD -Patient reports being hospitalized with pneumonia and lung abscess in September (will request records from [place]) -Was taking cefdinir 300 mg twice a day -azithromycin and Rocephin for now #Acute on chronic hypoxic respiratory failure -Chest x-ray with bilateral pneumonia -Patient reports using 3 L of oxygen at home following hospital discharge in September -patient denies history of COPD, is a current smoker -maintain O2 saturation greater than 92% -Covid PCR negative -Likely secondary to pneumonia vs CHF exacerbation -CT chest w/o contrast shows moderate-severe patchy ground glass opacities in R lung -continue duoneb #Suspected COVID-19 infection -COVID PCR negative #Coronary artery disease -status post CABG x3 with valve repair -Continue Plavix and statin #Hypertension -continue home medications #History of heart failure -Euvolemic on exam, BNP 5242 -Currently on GDMT -s/p 1 dose lasix in the ED; will continue with lasix 40q day -TTE pending #Chronic pain -continue pregabalin -Patient reports using opiate therapy at home; under pain management contract -confirmed that patient takes oxycotin from [facility], will continue inpatient -naloxone PRN -will continue with as needed opiates Disposition Plan: Anticipated discharge home with Total Time Spent with Patient (Minutes): 20 minutes History Interval history: No acute events overnight. Shortness of breath improved. Continues to have her typical chronic pain. Hospitalist Physical - Physical exam Narrative exam: GENERAL: Obese woman. Sitting in bed in no acute distress. HEENT: NC @ 4LPM CHEST/LUNGS: Coarse breath sounds. HEART/CARDIOVASCULAR: RRR. No murmur, rubs or gallops appreciated. ABDOMEN: +BS. NT/ND. NEURO: No focal motor deficit. Follows all commands. EXTREMITIES: RLE non-tender to touch. No cyanosis, clubbing or edema. PSYCH: Cooperative. - Constitutional Vitals: Temp Pulse Resp BP Pulse Ox 98.0 F 80 18 159/84 97 10/30/20 05:10 10/30/20 08:18 10/30/20 08:18 10/30/20 05:10 10/30/20 08:31 General appearance: Present: mild distress, obese - Allied Health Allied health notes reviewed: nursing HEART Score - HEART Score Troponin: Troponin T 0.056 ng/mL (0.00-0.029) H D 10/28/20 18:34 Results - Labs CBC & Chem 7: 10/30/20 07:09 10/30/20 07:09 Labs: Laboratory Last Values WBC 7.9 K/mm3 (4.5-11.0) 10/30/20 07:09 RBC 3.11 M/mm3 (3.65-5.03) L 10/30/20 07:09 Hgb 8.7 gm/dl (10.1-14.3) L 10/30/20 07:09 Hct 26.8 % (30.3-42.9) L 10/30/20 07:09 MCV 86 fl (79-97) 10/30/20 07:09 MCH 28 pg (28-32) 10/30/20 07:09 MCHC 33 % (30-34) 10/30/20 07:09 RDW 20.0 % (13.2-15.2) H 10/30/20 07:09 Plt Count 267 K/mm3 (140-440) 10/30/20 07:09 Lymph % (Auto) Computer Systems [employer]er 10/28/20 17:30 [place] % (Auto) Computer Systems Designer 10/28/20 17:30 Eos % (Auto) Computer Systems Designer 10/28/20 17:30 Baso % (Auto) Computer Systems Designer 10/28/20 17:30 Lymph # (Auto) Computer Systems Designer 10/28/20 17:30 [place] # (Auto) Computer Systems Designer 10/28/20 17:30 Eos # (Auto) Computer Systems Designer 10/28/20 17:30 Baso # (Auto) Computer Systems Designer 10/28/20 17:30 Add Manual Diff Complete 10/29/20 05:36 Total Counted 100 10/29/20 05:36 Seg Neutrophils % Computer Systems [employer]er 10/28/20 17:30 Seg Neuts % (Manual) 81.0 % (40.0-70.0) H 10/29/20 05:36 Band Neutrophils % 1.0 % 10/29/20 05:36 Lymphocytes % (Manual) 18.0 % (13.4-35.0) 10/29/20 05:36 Basophils % (Manual) 1.0 % (0.0-1.8) 10/28/20 17:30 Nucleated RBC % Not Reportable 10/29/20 05:36 Seg Neutrophils # Computer Systems Designer 10/28/20 17:30 Seg Neutrophils # Man 6.2 K/mm3 (1.8-7.7) 10/29/20 05:36 Band Neutrophils # 0.1 K/mm3 10/29/20 05:36 Lymphocytes # (Manual) 1.4 K/mm3 (1.2-5.4) 10/29/20 05:36 Abs React Lymphs (Man) 0.0 K/mm3 10/29/20 05:36 Monocytes # (Manual) 0.0 K/mm3 (0.0-0.8) 10/29/20 05:36 Eosinophils # (Manual) 0.0 K/mm3 (0.0-0.4) 10/29/20 05:36 Basophils # (Manual) 0.0 K/mm3 (0.0-0.1) 10/29/20 05:36 Metamyelocytes # 0.0 K/mm3 10/29/20 05:36 Myelocytes # 0.0 K/mm3 10/29/20 05:36 Promyelocytes # 0.0 K/mm3 10/29/20 05:36 Blast Cells # 0.0 K/mm3 10/29/20 05:36 WBC Morphology Not Reportable 10/29/20 05:36 Hypersegmented Neuts Not Reportable 10/29/20 05:36 Hyposegmented Neuts Not Reportable 10/29/20 05:36 Hypogranular Neuts Not Reportable 10/29/20 05:36 Smudge Cells Not Reportable 10/29/20 05:36 Toxic Granulation Not Reportable 10/29/20 05:36 Toxic Vacuolation Not Reportable 10/29/20 05:36 Dohle Bodies Not Reportable 10/29/20 05:36 Pelger-Huet Anomaly Not Reportable 10/29/20 05:36 No Rods Not Reportable 10/29/20 05:36 Platelet Estimate Consistent w auto 10/29/20 05:36 Clumped Platelets Not Reportable 10/29/20 05:36 Plt Clumps, EDTA Not Reportable 10/29/20 05:36 Large Platelets Not Reportable 10/29/20 05:36 Giant Platelets Not Reportable 10/29/20 05:36 Platelet Satelliting Not Reportable 10/29/20 05:36 Plt Morphology Comment Not Reportable 10/29/20 05:36 RBC Morphology Normal 10/29/20 05:36 Dimorphic RBCs Not Reportable 10/29/20 05:36 Polychromasia Not Reportable 10/29/20 05:36 Hypochromasia Not Reportable 10/29/20 05:36 Poikilocytosis Not Reportable 10/29/20 05:36 Anisocytosis Not Reportable 10/29/20 05:36 Microcytosis Not Reportable 10/29/20 05:36 Macrocytosis Not Reportable 10/29/20 05:36 Spherocytes Not Reportable 10/29/20 05:36 Pappenheimer Bodies Not Reportable 10/29/20 05:36 Sickle Cells Not Reportable 10/29/20 05:36 Target Cells Not Reportable 10/29/20 05:36 Tear Drop Cells Not Reportable 10/29/20 05:36 Ovalocytes Not Reportable 10/29/20 05:36 Helmet Cells Not Reportable 10/29/20 05:36 [place] Bodies Not Reportable 10/29/20 05:36 Hope Rings Not Reportable 10/29/20 05:36 [place] Cells Not Reportable 10/29/20 05:36 Bite Cells Not Reportable 10/29/20 05:36 Crenated Cell Not Reportable 10/29/20 05:36 Elliptocytes Not Reportable 10/29/20 05:36 Acanthocytes (Spur) Not Reportable 10/29/20 05:36 Rouleaux Not Reportable 10/29/20 05:36 Hemoglobin C Crystals Not Reportable 10/29/20 05:36 Schistocytes Not Reportable 10/29/20 05:36 Malaria parasites Not Reportable 10/29/20 05:36 Benji Bodies Not Reportable 10/29/20 05:36 Hem Pathologist Commnt No 10/29/20 05:36 PT 13.6 Sec. (12.2-14.9) 10/28/20 16:35 INR 0.99 (0.87-1.13) 10/28/20 16:35 APTT < 24.2 Sec. (24.2-36.6) L 10/28/20 16:35 Sodium 141 mmol/L (137-145) 10/30/20 07:09 Potassium 3.8 mmol/L (3.6-5.0) 10/30/20 07:09 Chloride 103.1 mmol/L (98-107) 10/30/20 07:09 Carbon Dioxide 26 mmol/L (22-30) 10/30/20 07:09 Anion Gap 16 mmol/L 10/30/20 07:09 BUN 15 mg/dL (7-17) 10/30/20 07:09 Creatinine 0.7 mg/dL (0.6-1.2) 10/30/20 07:09 Estimated GFR > 60 ml/min 10/30/20 07:09 BUN/Creatinine Ratio 21 % 10/30/20 07:09 Glucose 146 mg/dL (65-100) H 10/30/20 07:09 POC Glucose 175 mg/dL (70-105) H 10/29/20 00:16 Lactic Acid 0.80 mmol/L (0.7-2.0) 10/29/20 05:36 Calcium 8.5 mg/dL (8.4-10.2) 10/30/20 07:09 Total Bilirubin 0.50 mg/dL (0.1-1.2) 10/28/20 16:35 Direct Bilirubin 0.2 mg/dL (0-0.2) 10/28/20 16:35 Indirect Bilirubin 0.3 mg/dL 10/28/20 16:35 AST 25 units/L (5-40) 10/28/20 16:35 ALT 24 units/L (7-56) 10/28/20 16:35 Alkaline Phosphatase 93 units/L (35-129) 10/28/20 16:35 Troponin T 0.056 ng/mL (0.00-0.029) H D 10/28/20 18:34 NT-Pro-B Natriuret Pep 5242 pg/mL (0-900) H 10/28/20 16:35 Total Protein 8.1 g/dL (6.3-8.2) 10/28/20 16:35 Albumin 4.2 g/dL (3.9-5) 10/28/20 16:35 Albumin/Globulin Ratio 1.1 % 10/28/20 16:35 Triglycerides 205 mg/dL (2-149) H 10/28/20 16:35 Cholesterol 170 mg/dL (50-199) 10/28/20 16:35 LDL Cholesterol Direct 100 mg/dL (50-130) 10/28/20 16:35 HDL Cholesterol 39 mg/dL (40-59) L 10/28/20 16:35 Cholesterol/HDL Ratio 4.35 % 10/28/20 16:35 Nasal Screen MRSA (PCR) Negative (Negative) 10/29/20 01:40 Coronavirus (PCR) Negative (Negative) 10/29/20 Unknown Blood Type A NEGATIVE 10/28/20 18:34 Antibody Screen Negative 10/28/20 18:34 Microbiology: Microbiology 10/28/20 16:51 Peripheral/Venous Blood Culture - Preliminary NO GROWTH AFTER 24 HOURS 10/28/20 16:51 Peripheral/Venous Blood Culture - Preliminary NO GROWTH AFTER 24 HOURS Hernandez/IV: Voiding Method Toilet Active Medications - Current Medications Current Medications: Generic Name Dose Route Start Last Admin Trade Name Freq PRN Reason Stop Dose Admin Acetaminophen 650 mg 10/28/20 18:11 Acetaminophen 325 Mg Tab PO Q4H PRN Pain MILD(1-3)/Fever >100.5/VICTOR Albuterol 2.5 mg 10/28/20 18:11 Albuterol 2.5 Mg/3 Ml Nebu IH Q4HRT PRN Shortness Of Breath Albuterol/Ipratropium 1 ampul 10/29/20 14:00 10/30/20 08:18 Ipratropium/Albuterol Sulfate 3 Ml Ampul.Neb IH 1 ampul Q6HRT BRIANNE Administration Aspirin 81 mg 10/29/20 12:00 10/29/20 13:42 Aspirin 81 Mg Tab Chew PO 81 mg QDAY BRIANNE Administration Clopidogrel Bisulfate 75 mg 10/29/20 12:00 10/29/20 13:42 Clopidogrel 75 Mg Tab PO 75 mg QDAY BRIANNE Administration Famotidine 10 mg 10/28/20 22:00 10/29/20 22:04 Famotidine 10 Mg Tab PO 10 mg BID BRIANNE Administration Heparin Sodium (Porcine) 5,000 unit 10/28/20 22:00 10/29/20 22:06 Heparin 5,000 Unit/1 Ml Vial SUB-Q 5,000 unit Q12HR BRIANNE Administration Hydralazine HCl 50 mg 10/29/20 12:00 10/29/20 22:05 Hydralazine 25 Mg Tab PO 50 mg BID BRIANNE Administration Hydromorphone HCl 0.25 mg 10/28/20 18:11 10/30/20 06:20 Hydromorphone 1 Mg/1 Ml Inj IV 0.25 mg Q4H PRN Administration Pain, Moderate (4-6) Hydromorphone HCl 0.5 mg 10/28/20 18:11 10/29/20 22:10 Hydromorphone 1 Mg/1 Ml Inj IV 0.5 mg Q24H PRN Administration Pain , Severe (7-10) Hydromorphone HCl 1 mg 10/29/20 11:05 Hydromorphone 1 Mg/1 Ml Inj IM Q4H PRN Pain , Severe (7-10) Azithromycin 500 mg in 250 mls @ 250 mls/hr 10/28/20 20:00 10/29/20 20:23 Zithromax/Ns IV 11/01/20 20:59 250 mls/hr Q24H BRIANNE Administration Protocol Ceftriaxone Sodium 2 gm in 100 mls @ 200 mls/hr 10/29/20 17:00 10/29/20 19:01 Rocephin/Ns 2 Gm/100 Ml IV 11/02/20 23:59 200 mls/hr Q24H BRIANNE Administration Protocol Losartan Potassium 100 mg 10/29/20 12:00 10/29/20 13:44 Losartan 50 Mg Tab PO 100 mg QDAY BRIANNE Administration Metoprolol Tartrate 50 mg 10/29/20 22:00 10/29/20 22:05 Metoprolol Tartrate 50 Mg Tab PO 50 mg BID BRIANNE Administration Ondansetron HCl 4 mg 10/28/20 18:11 Ondansetron 4 Mg/2 Ml Inj IV Q8H PRN Nausea And Vomiting Oxycodone/Acetaminophen 1 tab 10/28/20 18:11 10/29/20 19:02 Oxycodone /Acetaminophen 5-325mg Tab PO 1 tab Q12H PRN Administration Pain, Moderate (4-6) Pregabalin 200 mg 10/29/20 22:00 10/29/20 22:04 Pregabalin 50 Mg Cap PO 200 mg BID BRIANNE Administration Sodium Chloride 10 ml 10/28/20 22:00 10/29/20 22:06 Sodium Chloride 0.9% 10 Ml Flush Syringe IV 10 ml BID BRIANNE Administration Sodium Chloride 10 ml 10/28/20 18:11 Sodium Chloride 0.9% 10 Ml Flush Syringe IV PRN PRN LINE FLUSH Nutrition/Malnutrition Assess - Dietary Evaluation Nutrition/Malnutrition Findings: Nutrition Notes Start: 10/29/20 09:47 Freq: Status: Active Protocol: Document 10/29/20 09:47 MK (Rec: 10/29/20 09:56 MK [id number]) Nutrition Notes Need for Assessment generated from: personal lines insurance agent,MST Initial or Follow up Assessment Current Diagnosis COPD,Sepsis,Hypertension,Heart Failure,Respiratory Failure Other Pertinent Diagnosis pneu, COVID19 PUI Current Diet cardiac Labs/Tests Na 135 Pertinent Medications Solu Medrol Height 5 ft 5 in Weight 99 kg Usual Body Weight 106.36 kg [place] Body Weight (kg) 56.81 BMI 36.3 Weight change and time frame 6.8% wt loss in 3 weeks Weight Status Obese Subjective/Other Information RN screen for MST. Pt reports eating slightly less recently. She doesn't normally eat breakfast. Pt drinks Boost at home. Burn Absent Trauma Absent Current % PO Fair (50-74%) Minimum of two criteria Yes Energy Intake (non-severe) <75% Estimated Energy Requirement >7 days Interpretation of Weight Loss (severe) >5% in 1 month #1 Nutrition Diagnosis Malnutrition Etiology acute illness As Evidenced by Signs and Symptoms <75% of EET in >7 days, >5% wt loss in 1 month Is patient on ventilator? No Is Patient Ambulatory and/or Out of Bed Yes REE-([place]-St. Jeor-ambulatory/OOB) [ 2028.144 [id number]] Kcal/Kg value to use for calculation 15 Approximate Energy Requirements Using 1485 kcal/Kg Calculation Used for Recommendations Kcal/kg Additional Notes Protein: (1.2-1.5g/kg AdjBW: 78kg) 94-117g Fluid: 1 ml/kcal Nutrition Intervention Change Diet Order: continue Add Supplement/Snack (indicate name/kcal Ensure Enlive BID /protein ) Provides kCal: 700 Provides Protein (gm) 40 Goal #1 Meet at least 75% of protein and kcal needs via PO and ONS Anticipated Discharge Needs: Cardiac Follow-Up By: 11/01/20 Additional Comments F/u: intakes and ONS tolerance
[2020-10-30] MEDS: HYDROmorphone 1 MG/1 ML INJ IM PRN ×2 (09:18→16:51)
[2020-10-30] MEDS: PREGABALIN 50 MG CAP PO SCH ×2 (10:15→22:33)
[2020-10-30] MEDS: hydrALAZINE 25 MG TAB PO SCH ×2 (10:16→22:31)
[2020-10-30] MEDS: METOPROLOL TARTRATE 50 MG TAB PO SCH ×2 (10:17→22:30)
[2020-10-30] MEDS: ASPIRIN 81 MG TAB CHEW PO SCH (10:17)
[2020-10-30] MEDS: FAMOTIDINE 10 MG TAB PO SCH ×2 (10:17→22:33)
[2020-10-30] MEDS: HEPARIN 5,000 UNIT/1 ML VIAL SUB-Q SCH ×2 (10:17→22:31)
[2020-10-30] MEDS: LOSARTAN 50 MG TAB PO SCH (10:17)
[2020-10-30] MEDS: CLOPIDOGREL 75 MG TAB PO SCH (10:18)
[2020-10-30] MEDS ORDERED: oxyCODONE /ACETAMINOPHEN 5-325MG TAB PO NR (10:45)
--- NOTE | 2020-10-30 11:04 | XRay Report ---
RIGHT FEMUR 2 VIEWS INDICATION: R leg pain after fall at home. COMPARISON: None. IMPRESSION: No acute osseous or soft tissue abnormality. Moderate to severe degenerative changes are identified at the right hip and knee. Signer Name: Norman Youssef Jr, MD Signed: 10/30/2020 11:00 AM Workstation Name: [id number]
[2020-10-30] MEDS ORDERED: NALOXONE 0.4 MG/1 ML INJ IV PRN (13:17)
[2020-10-30] MEDS: oxyCODONE ER 10 MG TAB PO SCH ×2 (13:48→22:32)
[2020-10-30] MEDS: cefTRIAXone/NS 2 GM/100 ML 2 GM/100 ML BAG IV SCH (16:51)
[2020-10-30] MEDS: AZITHROMYCIN/NS 500 MG/250 ML 500 MG/250 ML BAG IV SCH (22:26)
[2020-10-31] MEDS: oxyCODONE /ACETAMINOPHEN 5-325MG TAB PO PRN ×3 (02:00→19:37)
[2020-10-31] MEDS: IPRATROPIUM/ALBUTEROL SULFATE 3 ML AMPUL.NEB IH SCH ×4 (03:53→21:33)
[2020-10-31] MEDS: HYDROmorphone 1 MG/1 ML INJ IM PRN ×4 (04:30→16:51)
[2020-10-31] MEDS: FAMOTIDINE 10 MG TAB PO SCH ×2 (09:49→21:44)
[2020-10-31] MEDS: oxyCODONE ER 10 MG TAB PO SCH ×2 (09:49→22:13)
[2020-10-31] MEDS: LOSARTAN 50 MG TAB PO SCH (09:49)
[2020-10-31] MEDS: METOPROLOL TARTRATE 50 MG TAB PO SCH ×2 (09:49→21:45)
[2020-10-31] MEDS: ASPIRIN 81 MG TAB CHEW PO SCH (09:49)
[2020-10-31] MEDS: PREGABALIN 50 MG CAP PO SCH ×2 (09:49→21:43)
[2020-10-31] MEDS: CLOPIDOGREL 75 MG TAB PO SCH (09:49)
[2020-10-31] MEDS: HEPARIN 5,000 UNIT/1 ML VIAL SUB-Q SCH ×2 (09:50→21:44)
[2020-10-31] MEDS: hydrALAZINE 25 MG TAB PO SCH ×2 (10:56→21:44)
[2020-10-31 10:59] LABS: Blood Urea Nitrogen 12 mg/dL (7-17); Calcium 8.8 mg/dL (8.4-10.2); Hemolysis Index 0
[2020-10-31 11:02] LABS: BUN/Creatinine Ratio 17
[2020-10-31] MEDS: cefTRIAXone/NS 2 GM/100 ML 2 GM/100 ML BAG IV SCH (16:59)
--- NOTE | 2020-10-31 17:06 | Progress Note ---
Assessment and Plan Assessment and plan: Assessment and plan: #Sepsis -resolved, BCx NGTD x2 days -Patient reports being hospitalized with pneumonia and lung abscess in September (will request records from [facility]); still pending records -Was taking cefdinir 300 mg twice a day - azithromycin and Rocephin for now #Acute on chronic hypoxic respiratory failure -Chest x-ray with bilateral pneumonia -Patient reports using 3 L of oxygen at home following hospital discharge in September; currently on 3 L -patient denies history of COPD, is a current smoker -maintain O2 saturation greater than 92% -Covid PCR negative -Likely secondary to pneumonia vs CHF exacerbation -CT chest w/o contrast shows moderate-severe patchy ground glass opacities in R lung -continue duoneb #Suspected COVID-19 infection -COVID PCR negative #Coronary artery disease -status post CABG x3 with valve repair -Continue Plavix and statin #Hypertension -continue home medications #History of heart failure -Euvolemic on exam, BNP 5242 -Currently on GDMT -s/p 1 dose lasix in the ED; will continue with lasix 40q day -TTE reveals EF 45 to 40% #Chronic pain -continue pregabalin -Patient reports using opiate therapy at home; under pain management contract -confirmed that patient takes oxycotin from [facility], will continue inpatient -naloxone PRN -will continue with as needed opiates Disposition Plan: Pending discharge home with Total Time Spent with Patient (Minutes): 30 History Interval history: No acute events over night. The patient denies fevers, chills, nausea, vomiting, abdominal pain, chest pain/pressure, shortness of breath, urinary symptoms, weakness, or confusion. Hospitalist Physical - Constitutional Vitals: Temp Pulse Resp BP Pulse Ox 98.7 F 88 20 143/62 100 10/31/20 11:44 10/31/20 15:09 10/31/20 16:51 10/31/20 11:44 10/31/20 11:44 General appearance: Present: mild distress, obese - EENT Eyes: Present: PERRL, EOM intact ENT: hearing intact, clear oral mucosa, dentition normal - Neck Neck: Present: supple, normal ROM - Respiratory Respiratory effort: normal Respiratory: bilateral: rhonchi - Cardiovascular Rhythm: regular Heart Sounds: Present: S1 & S2 - Extremities Extremities: no ischemia, pulses intact, pulses symmetrical, No edema, normal temperature, Full ROM Peripheral Pulses: within normal limits - Abdominal General gastrointestinal: soft, non-tender, non-distended, normal bowel sounds - Integumentary Integumentary: Present: clear, warm, dry - Psychiatric Psychiatric: appropriate mood/affect, intact judgment & insight, memory intact, cooperative - Neurologic Neurologic: CNII-XII intact, moves all extremities - Allied Health Allied health notes reviewed: nursing HEART Score - HEART Score EKG: Non-specific Age: 45-65 Risk factors: 1-2 risk factors Troponin: Troponin T 0.056 ng/mL (0.00-0.029) H D 10/28/20 18:34 - Critical Actions Critical Actions: 4-6 pts:12-16.6% risk of adverse cardiac event. Should be admitted Results - Labs CBC & Chem 7: 10/30/20 07:09 10/31/20 08:35 Labs: Laboratory Last Values WBC 7.9 K/mm3 (4.5-11.0) 10/30/20 07:09 RBC 3.11 M/mm3 (3.65-5.03) L 10/30/20 07:09 Hgb 8.7 gm/dl (10.1-14.3) L 10/30/20 07:09 Hct 26.8 % (30.3-42.9) L 10/30/20 07:09 MCV 86 fl (79-97) 10/30/20 07:09 MCH 28 pg (28-32) 10/30/20 07:09 MCHC 33 % (30-34) 10/30/20 07:09 RDW 20.0 % (13.2-15.2) H 10/30/20 07:09 Plt Count 267 K/mm3 (140-440) 10/30/20 07:09 Lymph % (Auto) Irrigation Equipment Mechanic 10/28/20 17:30 [place] % (Auto) Irrigation Equipment Mechanic 10/28/20 17:30 Eos % (Auto) Irrigation Equipment Mechanic 10/28/20 17:30 Baso % (Auto) Irrigation Equipment Mechanic 10/28/20 17:30 Lymph # (Auto) Irrigation Equipment Mechanic 10/28/20 17:30 [place] # (Auto) Irrigation Equipment Mechanic 10/28/20 17:30 Eos # (Auto) Irrigation Equipment Mechanic 10/28/20 17:30 Baso # (Auto) Irrigation Equipment Mechanic 10/28/20 17:30 Add Manual Diff Complete 10/29/20 05:36 Total Counted 100 10/29/20 05:36 Seg Neutrophils % Irrigation Equipment Mechanic 10/28/20 17:30 Seg Neuts % (Manual) 81.0 % (40.0-70.0) H 10/29/20 05:36 Band Neutrophils % 1.0 % 10/29/20 05:36 Lymphocytes % (Manual) 18.0 % (13.4-35.0) 10/29/20 05:36 Basophils % (Manual) 1.0 % (0.0-1.8) 10/28/20 17:30 Nucleated RBC % Not Reportable 10/29/20 05:36 Seg Neutrophils # Irrigation Equipment Mechanic 10/28/20 17:30 Seg Neutrophils # Man 6.2 K/mm3 (1.8-7.7) 10/29/20 05:36 Band Neutrophils # 0.1 K/mm3 10/29/20 05:36 Lymphocytes # (Manual) 1.4 K/mm3 (1.2-5.4) 10/29/20 05:36 Abs React Lymphs (Man) 0.0 K/mm3 10/29/20 05:36 Monocytes # (Manual) 0.0 K/mm3 (0.0-0.8) 10/29/20 05:36 Eosinophils # (Manual) 0.0 K/mm3 (0.0-0.4) 10/29/20 05:36 Basophils # (Manual) 0.0 K/mm3 (0.0-0.1) 10/29/20 05:36 Metamyelocytes # 0.0 K/mm3 10/29/20 05:36 Myelocytes # 0.0 K/mm3 10/29/20 05:36 Promyelocytes # 0.0 K/mm3 10/29/20 05:36 Blast Cells # 0.0 K/mm3 10/29/20 05:36 WBC Morphology Not Reportable 10/29/20 05:36 Hypersegmented Neuts Not Reportable 10/29/20 05:36 Hyposegmented Neuts Not Reportable 10/29/20 05:36 Hypogranular Neuts Not Reportable 10/29/20 05:36 Smudge Cells Not Reportable 10/29/20 05:36 Toxic Granulation Not Reportable 10/29/20 05:36 Toxic Vacuolation Not Reportable 10/29/20 05:36 Dohle Bodies Not Reportable 10/29/20 05:36 Pelger-Huet Anomaly Not Reportable 10/29/20 05:36 No Rods Not Reportable 10/29/20 05:36 Platelet Estimate Consistent w auto 10/29/20 05:36 Clumped Platelets Not Reportable 10/29/20 05:36 Plt Clumps, EDTA Not Reportable 10/29/20 05:36 Large Platelets Not Reportable 10/29/20 05:36 Giant Platelets Not Reportable 10/29/20 05:36 Platelet Satelliting Not Reportable 10/29/20 05:36 Plt Morphology Comment Not Reportable 10/29/20 05:36 RBC Morphology Normal 10/29/20 05:36 Dimorphic RBCs Not Reportable 10/29/20 05:36 Polychromasia Not Reportable 10/29/20 05:36 Hypochromasia Not Reportable 10/29/20 05:36 Poikilocytosis Not Reportable 10/29/20 05:36 Anisocytosis Not Reportable 10/29/20 05:36 Microcytosis Not Reportable 10/29/20 05:36 Macrocytosis Not Reportable 10/29/20 05:36 Spherocytes Not Reportable 10/29/20 05:36 Pappenheimer Bodies Not Reportable 10/29/20 05:36 Sickle Cells Not Reportable 10/29/20 05:36 Target Cells Not Reportable 10/29/20 05:36 Tear Drop Cells Not Reportable 10/29/20 05:36 Ovalocytes Not Reportable 10/29/20 05:36 Helmet Cells Not Reportable 10/29/20 05:36 Fraser-Lagrange Bodies Not Reportable 10/29/20 05:36 [place] Rings Not Reportable 10/29/20 05:36 Joanie Cells Not Reportable 10/29/20 05:36 Bite Cells Not Reportable 10/29/20 05:36 Crenated Cell Not Reportable 10/29/20 05:36 Elliptocytes Not Reportable 10/29/20 05:36 Acanthocytes (Spur) Not Reportable 10/29/20 05:36 Rouleaux Not Reportable 10/29/20 05:36 Hemoglobin C Crystals Not Reportable 10/29/20 05:36 Schistocytes Not Reportable 10/29/20 05:36 Malaria parasites Not Reportable 10/29/20 05:36 Benji Bodies Not Reportable 10/29/20 05:36 Hem Pathologist Commnt No 10/29/20 05:36 PT 13.6 Sec. (12.2-14.9) 10/28/20 16:35 INR 0.99 (0.87-1.13) 10/28/20 16:35 APTT < 24.2 Sec. (24.2-36.6) L 10/28/20 16:35 Sodium 142 mmol/L (137-145) 10/31/20 08:35 Potassium 3.5 mmol/L (3.6-5.0) L 10/31/20 08:35 Chloride 105.6 mmol/L (98-107) 10/31/20 08:35 Carbon Dioxide 29 mmol/L (22-30) 10/31/20 08:35 Anion Gap 11 mmol/L 10/31/20 08:35 BUN 12 mg/dL (7-17) 10/31/20 08:35 Creatinine 0.7 mg/dL (0.6-1.2) 10/31/20 08:35 Estimated GFR > 60 ml/min 10/31/20 08:35 BUN/Creatinine Ratio 17 % 10/31/20 08:35 Glucose 130 mg/dL (65-100) H 10/31/20 08:35 POC Glucose 175 mg/dL (70-105) H 10/29/20 00:16 Lactic Acid 0.80 mmol/L (0.7-2.0) 10/29/20 05:36 Calcium 8.8 mg/dL (8.4-10.2) 10/31/20 08:35 Total Bilirubin 0.50 mg/dL (0.1-1.2) 10/28/20 16:35 Direct Bilirubin 0.2 mg/dL (0-0.2) 10/28/20 16:35 Indirect Bilirubin 0.3 mg/dL 10/28/20 16:35 AST 25 units/L (5-40) 10/28/20 16:35 ALT 24 units/L (7-56) 10/28/20 16:35 Alkaline Phosphatase 93 units/L (35-129) 10/28/20 16:35 Troponin T 0.056 ng/mL (0.00-0.029) H D 10/28/20 18:34 NT-Pro-B Natriuret Pep 5242 pg/mL (0-900) H 10/28/20 16:35 Total Protein 8.1 g/dL (6.3-8.2) 10/28/20 16:35 Albumin 4.2 g/dL (3.9-5) 10/28/20 16:35 Albumin/Globulin Ratio 1.1 % 10/28/20 16:35 Triglycerides 205 mg/dL (2-149) H 10/28/20 16:35 Cholesterol 170 mg/dL (50-199) 10/28/20 16:35 LDL Cholesterol Direct 100 mg/dL (50-130) 10/28/20 16:35 HDL Cholesterol 39 mg/dL (40-59) L 10/28/20 16:35 Cholesterol/HDL Ratio 4.35 % 10/28/20 16:35 Nasal Screen MRSA (PCR) Negative (Negative) 10/29/20 01:40 Coronavirus (PCR) Negative (Negative) 10/29/20 Unknown Blood Type A NEGATIVE 10/28/20 18:34 Antibody Screen Negative 10/28/20 18:34 Microbiology: Microbiology 10/28/20 16:51 Peripheral/Venous Blood Culture - Preliminary NO GROWTH AFTER 48 HOURS 10/28/20 16:51 Peripheral/Venous Blood Culture - Preliminary NO GROWTH AFTER 48 HOURS Hernandez/IV: Voiding Method Toilet Active Medications - Current Medications Current Medications: Generic Name Dose Route Start Last Admin Trade Name Freq PRN Reason Stop Dose Admin Acetaminophen 650 mg 10/28/20 18:11 Acetaminophen 325 Mg Tab PO Q4H PRN Pain MILD(1-3)/Fever >100.5/VICTOR Albuterol 2.5 mg 10/28/20 18:11 Albuterol 2.5 Mg/3 Ml Nebu IH Q4HRT PRN Shortness Of Breath Albuterol/Ipratropium 1 ampul 10/29/20 14:00 10/31/20 15:09 Ipratropium/Albuterol Sulfate 3 Ml Ampul.Neb IH 1 ampul Q6HRT BRIANNE Administration Aspirin 81 mg 10/29/20 12:00 10/31/20 09:49 Aspirin 81 Mg Tab Chew PO 81 mg QDAY BRIANNE Administration Clopidogrel Bisulfate 75 mg 10/29/20 12:00 10/31/20 09:49 Clopidogrel 75 Mg Tab PO 75 mg QDAY BRIANNE Administration Famotidine 10 mg 10/28/20 22:00 10/31/20 09:49 Famotidine 10 Mg Tab PO 10 mg BID BRIANNE Administration Heparin Sodium (Porcine) 5,000 unit 10/28/20 22:00 10/31/20 09:50 Heparin 5,000 Unit/1 Ml Vial SUB-Q 5,000 unit Q12HR BRIANNE Administration Hydralazine HCl 50 mg 10/29/20 12:00 10/31/20 10:56 Hydralazine 25 Mg Tab PO 50 mg BID BRIANNE Administration Hydromorphone HCl 1 mg 10/29/20 11:05 10/31/20 16:51 Hydromorphone 1 Mg/1 Ml Inj IM 1 mg Q4H PRN Administration Pain , Severe (7-10) Hydromorphone HCl 0.25 mg 10/30/20 13:44 Hydromorphone 1 Mg/1 Ml Inj IV Q4H PRN Pain, Moderate (4-6) Azithromycin 500 mg in 250 mls @ 250 mls/hr 10/28/20 20:00 10/30/20 22:26 Zithromax/Ns IV 11/01/20 20:59 250 mls/hr Q24H BRIANNE Administration Protocol Ceftriaxone Sodium 2 gm in 100 mls @ 200 mls/hr 10/29/20 17:00 10/31/20 16:59 Rocephin/Ns 2 Gm/100 Ml IV 11/02/20 23:59 200 mls/hr Q24H BRIANNE Administration Protocol Losartan Potassium 100 mg 10/29/20 12:00 10/31/20 09:49 Losartan 50 Mg Tab PO 100 mg QDAY BRIANNE Administration Metoprolol Tartrate 50 mg 10/29/20 22:00 10/31/20 09:49 Metoprolol Tartrate 50 Mg Tab PO 50 mg BID BRIANNE Administration Naloxone HCl 0.1 mg 10/30/20 13:17 Naloxone 0.4 Mg/1 Ml Inj IV Q2MIN PRN Res Rate </= 8 or 02 SAT < 92% Ondansetron HCl 4 mg 10/28/20 18:11 Ondansetron 4 Mg/2 Ml Inj IV Q8H PRN Nausea And Vomiting Oxycodone HCl 30 mg 10/30/20 14:00 10/31/20 09:49 Oxycodone Er 10 Mg Tab PO 30 mg Q12HR BRIANNE Administration Oxycodone/Acetaminophen 2 tab 10/30/20 13:18 10/31/20 11:14 Oxycodone /Acetaminophen 5-325mg Tab PO 2 tab Q8H PRN Administration Pain, Moderate (4-6) Pregabalin 200 mg 10/29/20 22:00 10/31/20 09:49 Pregabalin 50 Mg Cap PO 200 mg BID BRIANNE Administration Sodium Chloride 10 ml 10/28/20 22:00 10/31/20 09:51 Sodium Chloride 0.9% 10 Ml Flush Syringe IV 10 ml BID BRIANNE Administration Sodium Chloride 10 ml 10/28/20 18:11 Sodium Chloride 0.9% 10 Ml Flush Syringe IV PRN PRN LINE FLUSH Nutrition/Malnutrition Assess - Dietary Evaluation Nutrition/Malnutrition Findings: Nutrition Notes Start: 10/29/20 09:47 Freq: Status: Active Protocol: Document 10/29/20 09:47 (Rec: 10/29/20 09:56 [id number]) Nutrition Notes Need for Assessment generated from: guest services manager,MST Initial or Follow up Assessment Current Diagnosis COPD,Sepsis,Hypertension,Heart Failure,Respiratory Failure Other Pertinent Diagnosis pneu, COVID19 PUI Current Diet cardiac Labs/Tests Na 135 Pertinent Medications Solu Medrol Height 5 ft 5 in Weight 99 kg Usual Body Weight 106.36 kg Grant Body Weight (kg) 56.81 BMI 36.3 Weight change and time frame 6.8% wt loss in 3 weeks Weight Status Obese Subjective/Other Information RN screen for MST. Pt reports eating slightly less recently. She doesn't normally eat breakfast. Pt drinks Boost at home. Burn Absent Trauma Absent Current % PO Fair (50-74%) Minimum of two criteria Yes Energy Intake (non-severe) <75% Estimated Energy Requirement >7 days Interpretation of Weight Loss (severe) >5% in 1 month #1 Nutrition Diagnosis Malnutrition Etiology acute illness As Evidenced by Signs and Symptoms <75% of EET in >7 days, >5% wt loss in 1 month Is patient on ventilator? No Is Patient Ambulatory and/or Out of Bed Yes REE-([place]-St. Jeor-ambulatory/OOB) [ 2028.144 [id number]] Kcal/Kg value to use for calculation 15 Approximate Energy Requirements Using 1485 kcal/Kg Calculation Used for Recommendations Kcal/kg Additional Notes Protein: (1.2-1.5g/kg AdjBW: 78kg) 94-117g Fluid: 1 ml/kcal Nutrition Intervention Change Diet Order: continue Add Supplement/Snack (indicate name/kcal Ensure Enlive BID /protein ) Provides kCal: 700 Provides Protein (gm) 40 Goal #1 Meet at least 75% of protein and kcal needs via PO and ONS Anticipated Discharge Needs: Cardiac Follow-Up By: 11/01/20 Additional Comments F/u: intakes and ONS tolerance - Attestation Statement I have reviewed and agreed w/ Malnutrition eval & tx plan: Yes
[2020-10-31] MEDS: AZITHROMYCIN/NS 500 MG/250 ML 500 MG/250 ML BAG IV SCH (21:45)
[2020-10-31] MEDS: MELATONIN 5 MG TAB PO PRN (22:13)
[2020-11-01] MEDS: HYDROmorphone 1 MG/1 ML INJ IM PRN ×2 (00:30→10:04)
[2020-11-01] MEDS: oxyCODONE /ACETAMINOPHEN 5-325MG TAB PO PRN ×3 (04:28→18:03)
[2020-11-01] MEDS: IPRATROPIUM/ALBUTEROL SULFATE 3 ML AMPUL.NEB IH SCH ×4 (05:24→23:12)
[2020-11-01] MEDS: hydrALAZINE 25 MG TAB PO SCH ×2 (10:12→23:00)
[2020-11-01] MEDS: PREGABALIN 50 MG CAP PO SCH ×2 (10:13→23:02)
[2020-11-01] MEDS: LOSARTAN 50 MG TAB PO SCH (10:16)
[2020-11-01] MEDS: CLOPIDOGREL 75 MG TAB PO SCH (10:16)
[2020-11-01] MEDS: METOPROLOL TARTRATE 50 MG TAB PO SCH ×2 (10:17→23:01)
[2020-11-01] MEDS: FAMOTIDINE 10 MG TAB PO SCH ×2 (10:17→23:02)
[2020-11-01] MEDS: HEPARIN 5,000 UNIT/1 ML VIAL SUB-Q SCH ×2 (10:18→23:01)
[2020-11-01] MEDS: ASPIRIN 81 MG TAB CHEW PO SCH (10:20)
[2020-11-01] MEDS: oxyCODONE ER 10 MG TAB PO SCH ×2 (12:17→23:01)
--- NOTE | 2020-11-01 13:08 | Progress Note ---
Assessment and Plan Assessment and plan: #Acute on chronic hypoxic respiratory failure -Chest x-ray with bilateral pneumonia -Patient reports using 3 L of oxygen at home following hospital discharge in September; currently on 3 L -patient denies history of COPD, is a current smoker -maintain O2 saturation greater than 92% -Covid PCR negative -Likely secondary to pneumonia vs CHF exacerbation -CT chest w/o contrast shows moderate-severe patchy ground glass opacities in R lung -continue duonebs #Sepsis -resolved, BCx NGTD x2 days -Patient reports being hospitalized with pneumonia and lung abscess in September (will request records from [place]); still pending records -Was taking cefdinir 300 mg twice a day - azithromycin and Rocephin for now #Suspected COVID-19 infection -COVID PCR negative #Coronary artery disease -status post CABG x3 with valve repair -Continue Plavix and statin #Hypertension -continue home medications #History of heart failure -Euvolemic on exam, BNP 5242 -Currently on GDMT -s/p 1 dose lasix in the ED; will continue with lasix 40q day -TTE reveals EF 45 to 40% #Chronic pain -continue pregabalin -Patient reports using opiate therapy at home; under pain management contract -confirmed that patient takes oxycotin from [facility], will continue inpatient -naloxone PRN -will continue with as needed opiates Disposition Plan: Pending medical management Total Time Spent with Patient (Minutes): 30 History Interval history: The patient was in severe distress this morning and crying out due to pain of her right hip. The patient endorsed not being given her pain medications. She did admit to having good sleep after being given melatonin; however, she was awake in due to her hip pain. She denies fevers, chill, nausea, vomiting, diarrhea, urinary symptoms, headache, or weakness. Hospitalist Physical - Constitutional Vitals: Temp Pulse Resp BP Pulse Ox 98.0 F 74 17 151/66 100 11/01/20 04:23 11/01/20 10:16 11/01/20 05:28 11/01/20 10:16 10/31/20 21:34 General appearance: Present: severe distress, obese - EENT Eyes: Present: PERRL, EOM intact ENT: hearing intact, clear oral mucosa, dentition normal - Neck Neck: Present: supple, normal ROM - Respiratory Respiratory effort: normal Respiratory: left: diminished, rhonchi, negative: CTA, rales, wheezing - Cardiovascular Rhythm: regular Heart Sounds: Present: S1 & S2 - Extremities Extremities: no ischemia, pulses intact, pulses symmetrical, No edema Extremity abnormal: tenderness (Severe tenderness of right hip on mild palpation; no erythema, edema, or bruising) Peripheral Pulses: within normal limits - Abdominal General gastrointestinal: soft, non-tender, non-distended, normal bowel sounds - Integumentary Integumentary: Present: clear, warm, dry - Psychiatric Psychiatric: appropriate mood/affect, intact judgment & insight, memory intact, cooperative - Neurologic Neurologic: CNII-XII intact, moves all extremities - Allied Health Allied health notes reviewed: nursing HEART Score - HEART Score EKG: Non-specific Age: 45-65 Risk factors: 1-2 risk factors Troponin: Troponin T 0.056 ng/mL (0.00-0.029) H D 10/28/20 18:34 - Critical Actions Critical Actions: 4-6 pts:12-16.6% risk of adverse cardiac event. Should be admitted Results - Labs CBC & Chem 7: 10/30/20 07:09 10/31/20 08:35 Labs: Laboratory Last Values WBC 7.9 K/mm3 (4.5-11.0) 10/30/20 07:09 RBC 3.11 M/mm3 (3.65-5.03) L 10/30/20 07:09 Hgb 8.7 gm/dl (10.1-14.3) L 10/30/20 07:09 Hct 26.8 % (30.3-42.9) L 10/30/20 07:09 MCV 86 fl (79-97) 10/30/20 07:09 MCH 28 pg (28-32) 10/30/20 07:09 MCHC 33 % (30-34) 10/30/20 07:09 RDW 20.0 % (13.2-15.2) H 10/30/20 07:09 Plt Count 267 K/mm3 (140-440) 10/30/20 07:09 Lymph % (Auto) Numerical Control Tool Programmer 10/28/20 17:30 [place] % (Auto) Numerical Control Tool Programmer 10/28/20 17:30 Eos % (Auto) Numerical Control Tool Programmer 10/28/20 17:30 Baso % (Auto) Numerical Control Tool Programmer 10/28/20 17:30 Lymph # (Auto) Numerical Control Tool Programmer 10/28/20 17:30 [place] # (Auto) Numerical Control Tool Programmer 10/28/20 17:30 Eos # (Auto) Numerical Control Tool Programmer 10/28/20 17:30 Baso # (Auto) Numerical Control Tool Programmer 10/28/20 17:30 Add Manual Diff Complete 10/29/20 05:36 Total Counted 100 10/29/20 05:36 Seg Neutrophils % Numerical Control Tool Programmer 10/28/20 17:30 Seg Neuts % (Manual) 81.0 % (40.0-70.0) H 10/29/20 05:36 Band Neutrophils % 1.0 % 10/29/20 05:36 Lymphocytes % (Manual) 18.0 % (13.4-35.0) 10/29/20 05:36 Basophils % (Manual) 1.0 % (0.0-1.8) 10/28/20 17:30 Nucleated RBC % Not Reportable 10/29/20 05:36 Seg Neutrophils # Numerical Control Tool Programmer 10/28/20 17:30 Seg Neutrophils # Man 6.2 K/mm3 (1.8-7.7) 10/29/20 05:36 Band Neutrophils # 0.1 K/mm3 10/29/20 05:36 Lymphocytes # (Manual) 1.4 K/mm3 (1.2-5.4) 10/29/20 05:36 Abs React Lymphs (Man) 0.0 K/mm3 10/29/20 05:36 Monocytes # (Manual) 0.0 K/mm3 (0.0-0.8) 10/29/20 05:36 Eosinophils # (Manual) 0.0 K/mm3 (0.0-0.4) 10/29/20 05:36 Basophils # (Manual) 0.0 K/mm3 (0.0-0.1) 10/29/20 05:36 Metamyelocytes # 0.0 K/mm3 10/29/20 05:36 Myelocytes # 0.0 K/mm3 10/29/20 05:36 Promyelocytes # 0.0 K/mm3 10/29/20 05:36 Blast Cells # 0.0 K/mm3 10/29/20 05:36 WBC Morphology Not Reportable 10/29/20 05:36 Hypersegmented Neuts Not Reportable 10/29/20 05:36 Hyposegmented Neuts Not Reportable 10/29/20 05:36 Hypogranular Neuts Not Reportable 10/29/20 05:36 Smudge Cells Not Reportable 10/29/20 05:36 Toxic Granulation Not Reportable 10/29/20 05:36 Toxic Vacuolation Not Reportable 10/29/20 05:36 Dohle Bodies Not Reportable 10/29/20 05:36 Pelger-Huet Anomaly Not Reportable 10/29/20 05:36 No Rods Not Reportable 10/29/20 05:36 Platelet Estimate Consistent w auto 10/29/20 05:36 Clumped Platelets Not Reportable 10/29/20 05:36 Plt Clumps, EDTA Not Reportable 10/29/20 05:36 Large Platelets Not Reportable 10/29/20 05:36 Giant Platelets Not Reportable 10/29/20 05:36 Platelet Satelliting Not Reportable 10/29/20 05:36 Plt Morphology Comment Not Reportable 10/29/20 05:36 RBC Morphology Normal 10/29/20 05:36 Dimorphic RBCs Not Reportable 10/29/20 05:36 Polychromasia Not Reportable 10/29/20 05:36 Hypochromasia Not Reportable 10/29/20 05:36 Poikilocytosis Not Reportable 10/29/20 05:36 Anisocytosis Not Reportable 10/29/20 05:36 Microcytosis Not Reportable 10/29/20 05:36 Macrocytosis Not Reportable 10/29/20 05:36 Spherocytes Not Reportable 10/29/20 05:36 Pappenheimer Bodies Not Reportable 10/29/20 05:36 Sickle Cells Not Reportable 10/29/20 05:36 Target Cells Not Reportable 10/29/20 05:36 Tear Drop Cells Not Reportable 10/29/20 05:36 Ovalocytes Not Reportable 10/29/20 05:36 Helmet Cells Not Reportable 10/29/20 05:36 [place] Bodies Not Reportable 10/29/20 05:36 [place] Rings Not Reportable 10/29/20 05:36 Joanie Cells Not Reportable 10/29/20 05:36 Bite Cells Not Reportable 10/29/20 05:36 Crenated Cell Not Reportable 10/29/20 05:36 Elliptocytes Not Reportable 10/29/20 05:36 Acanthocytes (Spur) Not Reportable 10/29/20 05:36 Rouleaux Not Reportable 10/29/20 05:36 Hemoglobin C Crystals Not Reportable 10/29/20 05:36 Schistocytes Not Reportable 10/29/20 05:36 Malaria parasites Not Reportable 10/29/20 05:36 Benji Bodies Not Reportable 10/29/20 05:36 Hem Pathologist Commnt No 10/29/20 05:36 PT 13.6 Sec. (12.2-14.9) 10/28/20 16:35 INR 0.99 (0.87-1.13) 10/28/20 16:35 APTT < 24.2 Sec. (24.2-36.6) L 10/28/20 16:35 Sodium 142 mmol/L (137-145) 10/31/20 08:35 Potassium 3.5 mmol/L (3.6-5.0) L 10/31/20 08:35 Chloride 105.6 mmol/L (98-107) 10/31/20 08:35 Carbon Dioxide 29 mmol/L (22-30) 10/31/20 08:35 Anion Gap 11 mmol/L 10/31/20 08:35 BUN 12 mg/dL (7-17) 10/31/20 08:35 Creatinine 0.7 mg/dL (0.6-1.2) 10/31/20 08:35 Estimated GFR > 60 ml/min 10/31/20 08:35 BUN/Creatinine Ratio 17 % 10/31/20 08:35 Glucose 130 mg/dL (65-100) H 10/31/20 08:35 POC Glucose 175 mg/dL (70-105) H 10/29/20 00:16 Lactic Acid 0.80 mmol/L (0.7-2.0) 10/29/20 05:36 Calcium 8.8 mg/dL (8.4-10.2) 10/31/20 08:35 Total Bilirubin 0.50 mg/dL (0.1-1.2) 10/28/20 16:35 Direct Bilirubin 0.2 mg/dL (0-0.2) 10/28/20 16:35 Indirect Bilirubin 0.3 mg/dL 10/28/20 16:35 AST 25 units/L (5-40) 10/28/20 16:35 ALT 24 units/L (7-56) 10/28/20 16:35 Alkaline Phosphatase 93 units/L (35-129) 10/28/20 16:35 Troponin T 0.056 ng/mL (0.00-0.029) H D 10/28/20 18:34 NT-Pro-B Natriuret Pep 5242 pg/mL (0-900) H 10/28/20 16:35 Total Protein 8.1 g/dL (6.3-8.2) 10/28/20 16:35 Albumin 4.2 g/dL (3.9-5) 10/28/20 16:35 Albumin/Globulin Ratio 1.1 % 10/28/20 16:35 Triglycerides 205 mg/dL (2-149) H 10/28/20 16:35 Cholesterol 170 mg/dL (50-199) 10/28/20 16:35 LDL Cholesterol Direct 100 mg/dL (50-130) 10/28/20 16:35 HDL Cholesterol 39 mg/dL (40-59) L 10/28/20 16:35 Cholesterol/HDL Ratio 4.35 % 10/28/20 16:35 Nasal Screen MRSA (PCR) Negative (Negative) 10/29/20 01:40 Coronavirus (PCR) Negative (Negative) 10/29/20 Unknown Blood Type A NEGATIVE 10/28/20 18:34 Antibody Screen Negative 10/28/20 18:34 Microbiology: Microbiology 10/28/20 16:51 Peripheral/Venous Blood Culture - Preliminary NO GROWTH AFTER 72 HOURS 10/28/20 16:51 Peripheral/Venous Blood Culture - Preliminary NO GROWTH AFTER 72 HOURS Hernandez/IV: Voiding Method Toilet Active Medications - Current Medications Current Medications: Generic Name Dose Route Start Last Admin Trade Name Freq PRN Reason Stop Dose Admin Acetaminophen 650 mg 10/28/20 18:11 Acetaminophen 325 Mg Tab PO Q4H PRN Pain MILD(1-3)/Fever >100.5/VICTOR Albuterol 2.5 mg 10/28/20 18:11 Albuterol 2.5 Mg/3 Ml Nebu IH Q4HRT PRN Shortness Of Breath Albuterol/Ipratropium 1 ampul 10/29/20 14:00 11/01/20 05:24 Ipratropium/Albuterol Sulfate 3 Ml Ampul.Neb IH Not Given Q6HRT BRIANNE Arformoterol Tartrate 15 mcg 11/01/20 08:00 Arformoterol 15 Mcg/2 Ml Nebu IH Q12HRT BRIANNE Aspirin 81 mg 10/29/20 12:00 11/01/20 10:20 Aspirin 81 Mg Tab Chew PO 81 mg QDAY BRIANNE Administration Budesonide 0.5 mg 11/01/20 08:00 Budesonide 0.5 Mg/2 Ml Nebu IH Q12HRT BRIANNE Clopidogrel Bisulfate 75 mg 10/29/20 12:00 11/01/20 10:16 Clopidogrel 75 Mg Tab PO 75 mg QDAY BRIANNE Administration Famotidine 10 mg 10/28/20 22:00 11/01/20 10:17 Famotidine 10 Mg Tab PO 10 mg BID BRIANNE Administration Heparin Sodium (Porcine) 5,000 unit 10/28/20 22:00 11/01/20 10:18 Heparin 5,000 Unit/1 Ml Vial SUB-Q 5,000 unit Q12HR BRIANNE Administration Hydralazine HCl 50 mg 10/29/20 12:00 11/01/20 10:12 Hydralazine 25 Mg Tab PO 50 mg BID BRIANNE Administration Hydromorphone HCl 1 mg 10/29/20 11:05 11/01/20 10:04 Hydromorphone 1 Mg/1 Ml Inj IM 1 mg Q4H PRN Administration Pain , Severe (7-10) Hydromorphone HCl 0.25 mg 10/30/20 13:44 Hydromorphone 1 Mg/1 Ml Inj IV Q4H PRN Pain, Moderate (4-6) Azithromycin 500 mg in 250 mls @ 250 mls/hr 10/28/20 20:00 10/31/20 21:45 Zithromax/Ns IV 11/01/20 20:59 250 mls/hr Q24H BRIANNE Administration Protocol Ceftriaxone Sodium 2 gm in 100 mls @ 200 mls/hr 10/29/20 17:00 10/31/20 16:59 Rocephin/Ns 2 Gm/100 Ml IV 11/02/20 23:59 200 mls/hr Q24H BRIANNE Administration Protocol Losartan Potassium 100 mg 10/29/20 12:00 11/01/20 10:16 Losartan 50 Mg Tab PO 100 mg QDAY BRIANNE Administration Melatonin 10 mg 10/31/20 18:43 10/31/20 22:13 Melatonin 5 Mg Tab PO 10 mg QHS PRN Administration Sleep Metoprolol Tartrate 50 mg 10/29/20 22:00 11/01/20 10:17 Metoprolol Tartrate 50 Mg Tab PO 50 mg BID BRIANNE Administration Naloxone HCl 0.1 mg 10/30/20 13:17 Naloxone 0.4 Mg/1 Ml Inj IV Q2MIN PRN Res Rate </= 8 or 02 SAT < 92% Ondansetron HCl 4 mg 10/28/20 18:11 Ondansetron 4 Mg/2 Ml Inj IV Q8H PRN Nausea And Vomiting Oxycodone HCl 30 mg 10/30/20 14:00 11/01/20 12:17 Oxycodone Er 10 Mg Tab PO 30 mg Q12HR BRIANNE Administration Oxycodone/Acetaminophen 2 tab 10/30/20 13:18 11/01/20 04:28 Oxycodone /Acetaminophen 5-325mg Tab PO 2 tab Q8H PRN Administration Pain, Moderate (4-6) Pregabalin 200 mg 10/29/20 22:00 11/01/20 10:13 Pregabalin 50 Mg Cap PO 200 mg BID BRIANNE Administration Sodium Chloride 10 ml 10/28/20 22:00 11/01/20 10:26 Sodium Chloride 0.9% 10 Ml Flush Syringe IV 10 ml BID BRIANNE Administration Sodium Chloride 10 ml 10/28/20 18:11 Sodium Chloride 0.9% 10 Ml Flush Syringe IV PRN PRN LINE FLUSH Nutrition/Malnutrition Assess - Dietary Evaluation Nutrition/Malnutrition Findings: Nutrition Notes Start: 10/29/20 09:47 Freq: Status: Active Protocol: Document 11/01/20 11:39 (Rec: 11/01/20 11:43 [id number]) Nutrition Notes Initial or Follow up Reassessment Current Diagnosis COPD,Sepsis,Hypertension,Heart Failure,Respiratory Failure Other Pertinent Diagnosis pneu, COVID19 PUI Current Diet cardiac Labs/Tests K 3.5 Pertinent Medications Reviewed Height 5 ft 5 in Weight 98.9 kg [place] Body Weight (kg) 56.81 BMI 36.3 Weight Status Obese Subjective/Other Information Pt reports not eating breakfast. She is eating 50% of lunch and dinner. She does not like the Ensure. Pt has no food prefrences. Percent of energy/protein needs met: 50%/30% Burn Absent Trauma Absent GI Symptoms None Current % PO Poor (25-49%) Minimum of two criteria Yes Energy Intake (non-severe) <75% Estimated Energy Requirement >7 days Interpretation of Weight Loss (severe) >5% in 1 month #1 Nutrition Diagnosis Malnutrition Diagnosis Progress(for reassessment Continues documentation) Is patient on ventilator? No Is Patient Ambulatory and/or Out of Bed Yes REE-([facility]-ambulatory/OOB) [ NUTR.MSJOOB] Kcal/Kg value to use for calculation 15 Approximate Energy Requirements Using 1484 kcal/Kg Calculation Used for Recommendations Kcal/kg Additional Notes Protein: (1.2-1.5g/kg AdjBW: 78kg) 94-117g Fluid: 1 ml/kcal Nutrition Intervention Change Diet Order: continue Add Supplement/Snack (indicate name/kcal Ensure Clear daily (trial) /protein ) Provides kCal: 260 Provides Protein (gm) 8 Goal #1 Meet at least 75% of protein and kcal needs via PO and ONS Anticipated Discharge Needs: Cardiac Follow-Up By: 11/03/20 Additional Comments F/u: intakes and ONS tolerance - Attestation Statement I have reviewed and agreed w/ Malnutrition eval & tx plan: Yes
[2020-11-01] MEDS: HYDROmorphone 1 MG/1 ML INJ IV PRN ×2 (14:53→21:28)
[2020-11-01] MEDS: ARFORMOTEROL 15 MCG/2 ML NEBU IH SCH ×2 (17:17→23:12)
[2020-11-01] MEDS: BUDESONIDE 0.5 MG/2 ML NEBU IH SCH ×2 (17:18→23:12)
[2020-11-01] MEDS: cefTRIAXone/NS 2 GM/100 ML 2 GM/100 ML BAG IV SCH (18:04)
[2020-11-01] MEDS: AZITHROMYCIN/NS 500 MG/250 ML 500 MG/250 ML BAG IV SCH (21:37)
[2020-11-01] MEDS: MELATONIN 5 MG TAB PO PRN (23:08)
[2020-11-02] MEDS: HYDROmorphone 1 MG/1 ML INJ IV PRN ×3 (02:51→20:35)
[2020-11-02] MEDS: IPRATROPIUM/ALBUTEROL SULFATE 3 ML AMPUL.NEB IH SCH ×3 (03:30→16:17)
[2020-11-02 08:08] LABS: Basophils % (Auto) 0.5 % (0.0-1.8); Eosinophils # (Auto) 0.1 K/mm3 (0.0-0.4); Eosinophils % (Auto) 2.7 % (0.0-4.3); Hematocrit 27.8 % (30.3-42.9); Hemoglobin 8.8 gm/dl (10.1-14.3); Lymphocytes % (Auto) 21.9 % (13.4-35.0); Mean Corpuscular HGB Conc 32 % (30-34); Mean Corpuscular Volume 85 fl (79-97); Monocytes # (Auto) 0.3 K/mm3 (0.0-0.8); Monocytes % (Auto) 6.8 % (0.0-7.3); Platelet Count 265 K/mm3 (140-440); Red Blood Count 3.28 M/mm3 (3.65-5.03)
[2020-11-02 08:30] LABS: Blood Urea Nitrogen 12 mg/dL (7-17); Calcium 8.9 mg/dL (8.4-10.2); Hemolysis Index 0
[2020-11-02 08:33] LABS: BUN/Creatinine Ratio 20
[2020-11-02] MEDS: HEPARIN 5,000 UNIT/1 ML VIAL SUB-Q SCH (10:31)
[2020-11-02] MEDS: oxyCODONE ER 10 MG TAB PO SCH (10:31)
[2020-11-02] MEDS: FAMOTIDINE 10 MG TAB PO SCH (10:31)
[2020-11-02] MEDS: ASPIRIN 81 MG TAB CHEW PO SCH (10:31)
[2020-11-02] MEDS: CLOPIDOGREL 75 MG TAB PO SCH (10:32)
[2020-11-02] MEDS: METOPROLOL TARTRATE 50 MG TAB PO SCH (10:32)
[2020-11-02] MEDS: LOSARTAN 50 MG TAB PO SCH (10:32)
[2020-11-02] MEDS: PREGABALIN 50 MG CAP PO SCH (10:32)
[2020-11-02] MEDS: hydrALAZINE 25 MG TAB PO SCH (10:32)
[2020-11-02] MEDS: HYDROmorphone 1 MG/1 ML INJ IM PRN ×2 (11:38→16:16)
[2020-11-02] MEDS: BUDESONIDE 0.5 MG/2 ML NEBU IH SCH (16:18)
[2020-11-02] MEDS: ARFORMOTEROL 15 MCG/2 ML NEBU IH SCH (16:18)
[2020-11-02] MEDS: cefTRIAXone/NS 2 GM/100 ML 2 GM/100 ML BAG IV SCH (17:35)
--- NOTE | 2020-11-02 19:21 | Discharge Summary ---
Providers - Providers Date of Admission: 10/28/20 18:11 Date of discharge: 11/02/20 Attending physician: NADIRA SALDIVAR MD 10/30/20 13:19 Physical Therapy Evaluation and Treat [CONS] Routine Comment: Reason For Exam: Chronic pain Primary care physician: AMUSEMENT RIDE INSPECTOR Hospitalization Reason for admission: Acute hypoxic respiratory failure Condition: Stable Pertinent studies: Reviewed Hospital course: 60 YO Female with Obesity Hypoventilation Syndrome, CHF, HTN, COPD, OA, ANGELICA, Nicotine Dependence who presented for worsening shortness of breath. The patient utilizes home oxygen, requiring approximately 3 to 4 L nasal cannula. The patient admitted to having increased weakness, loss of smell, being unvaccinated, and overall fatigue. The patient was transported to the ED via EMS and found to be hypoxic to 72% on room air. The patient was initiated on sepsis protocol as well as worked up for possible COVID-19 infection. The patient was initiated on ceftriaxone and vancomycin while blood cultures were pending. Blood cultures showed no growth after 5 days. The hospital course was complicated by worsening respiratory status requiring BiPAP before eventually transitioning back to her baseline oxygen requirements. Further history revealed that the patient was seen at [facility] ([place] [facility]) where she was found to have a lung abscess requiring the use of multiple chest tubes, IV antibiotics, and eventual transition to p.o. antibiotics before discharge. Initially the patient left AMA from [facility]. She later returned to [facility] where she was eventually discharged with a 30-day course of Ancef twice daily. The course was to be completed on 11/03/2020. [facility] to verify the information. Given the maintained clinical stability of the patient and extended course of IV antibiotic treatment, it was deemed appropriate to discharge the patient home. The patient was counseled on completing the antibiotics by the due date. She also stated that she had a follow-up appointment with pulmonology (from the previous [facility] admission) on November 13, 2020 that she planned to attend. She will also be having lab work done on Friday, November 06, 2020 that was previously set up from her prior hospitalizations. Patient expressed understanding. Disposition: 01 HOME / SELF CARE / HOMELESS Final Discharge Diagnosis (Prints w/discharge instructions): Acute hypoxic respiratory failure; severe sepsis; metabolic acidosis with gap Core Measure Documentation - Palliative Care Palliative Care/ Comfort Measures: Not Applicable - Core Measures Any of the following diagnoses?: none - VTE Discharge Requirements Deep Vein Thrombosis/Pulmonary Embolism Present on Admission: No Has pt received <5 days of overlap therapy or INR<2.0: No (Not applicable) Anticoagulant overlap therapy prescribed at discharge: No Contraindication No Overlap Therapy order at DC: Not Indicated - Acute [place] Discharge Requirements Aspirin at discharge: Yes BEN/ARB for LVSD if EF <40%: Not Applicable Reason for no BEN/ARB: Medical contraindication (Not applicable) Beta heidi at discharge: Yes Statin for LDL = or >100 mg/dl on DC: Not Applicable - Heart Failure Discharge Requirements BEN/ARB for LVSD if EF <40%: Not Applicable Reason for no BEN/ARB: Medical contraindication (Not applicable) Beta heidi at discharge: Yes - Stroke Discharge Requirements Statin for LDL = or >70 mg/dl on DC: Not Applicable Reason for no statin on DC: Not Indicated Anticoag for atrial fib/atrial flutter: Not Applicable Reason for no anticoag for AF/F on DC: Not Indicated Antithrombotic for ischemic stroke: No Reason for no antithrombotic on DC: Not Indicated Exam - Constitutional Vitals: Temp Pulse Resp BP Pulse Ox 98.3 F 73 22 148/83 98 11/02/20 13:06 11/02/20 13:06 11/02/20 13:06 11/02/20 13:06 11/02/20 13:06 General appearance: Present: no acute distress - EENT Eyes: Present: PERRL, EOM intact ENT: hearing intact, clear oral mucosa, dentition normal - Neck Neck: Present: supple, normal ROM - Respiratory Respiratory effort: normal Details: On 3 L nasal cannula (baseline home oxygen requirements) - Cardiovascular Rhythm: regular Heart Sounds: Present: S1 & S2 - Extremities Extremities: no ischemia, pulses intact, pulses symmetrical, No edema Extremity abnormal: tenderness (Tenderness of lateral right hip) Peripheral Pulses: within normal limits - Abdominal General gastrointestinal: Present: soft, non-tender, non-distended, normal bowel sounds Female genitourinary: Present: deferred - Rectal Rectal Exam: deferred - Integumentary Integumentary: Present: clear, warm, dry - Musculoskeletal Musculoskeletal: strength equal bilaterally - Psychiatric Psychiatric: appropriate mood/affect, intact judgment & insight, memory intact, cooperative - Neurologic Neurologic: CNII-XII intact, moves all extremities - Allied Health Allied health notes reviewed: nursing Plan Health Concerns: Return to hospital if you develop fevers, chills, shortness of breath, confusion, weakness, or inability to tolerate po intake Follow up with: PRIMARY CARE, [Primary Care Provider] - 3-5 Days Prescriptions: Melatonin [Melatonin 5MG TAB] 10 mg PO QHS PRN 90 Days #90 tablet PRN Reason: Sleep HYDROmorphone [Dilaudid] 1 mg PO Q4HR 4 Days #15 tablet oxyCODONE /ACETAMINOPHEN [Percocet 5/325 mg] 2 tab PO Q8H PRN 4 Days #24 tablet PRN Reason: Pain, Moderate (4-6)
[2020-11-02 19:44] VITALS: BP 146/74
== END 2020-11-02 20:55 | disposition home or self-care (01) | DRG 871 ==
LOC: ED 16:26 → 3A 18:11
PROVIDERS: ADMIT Internal Medicine; ATTEND Student in an Organized Health Care Education/Training Program
PROC: 5A09357 Assistance with Respiratory Ventilation, Less than 24 Consecutive Hours, Continuous Positive Airway Pressure (ICD-10-PCS; principal; 2020-10-28)
PROC: 5A09357 Assistance with Respiratory Ventilation, Less than 24 Consecutive Hours, Continuous Positive Airway Pressure (ICD-10-PCS; 2020-10-31)
DX: A41.9 Sepsis, unspecified organism (principal); J18.9 Pneumonia, unspecified organism; J96.21 Acute and chronic respiratory failure with hypoxia; E66.2 Morbid (severe) obesity with alveolar hypoventilation; J44.0 Chronic obstructive pulmonary disease with (acute) lower respiratory infection; Z20.822 Contact with and (suspected) exposure to COVID-19; R65.20 Severe sepsis without septic shock; I25.10 Atherosclerotic heart disease of native coronary artery without angina pectoris; M19.90 Unspecified osteoarthritis, unspecified site; Z88.6 Allergy status to analgesic agent; Z88.0 Allergy status to penicillin; Z88.8 Allergy status to other drugs, medicaments and biological substances; Z68.35 Body mass index [BMI] 35.0-35.9, adult; I50.9 Heart failure, unspecified; I11.0 Hypertensive heart disease with heart failure; F41.1 Generalized anxiety disorder; Z83.3 Family history of diabetes mellitus; Z82.49 Family history of ischemic heart disease and other diseases of the circulatory system; Z96.659 Presence of unspecified artificial knee joint; F17.210 Nicotine dependence, cigarettes, uncomplicated; Z95.1 Presence of aortocoronary bypass graft; M54.30 Sciatica, unspecified side; G89.29 Other chronic pain
CPT/HCPCS: 36415; 71045; 71250; 80048; 80061; 80076; 82140; 82962; 83735; 83880; 84100; 84484; 85007; 85025; 85027; 85610; 85730; 86850; 86900; 86901; 87040; 87641; 93005; 93306; 94640; 94760; G0378; J0360; J0456; J0696; J1170; J1644; J1940; J1956; J2270; J2405; J2920; J2930; J7030; U0003